=== PATIENT | female | born 1995 | race Caucasian/White ===

== ENCOUNTER 2020-09-18 11:33 | Outpatient (RCR) | payer OTHER, SELFPAY ==
[2020-09-01 15:42] VITALS: BP 128/88; PULSE 80
[2020-09-04 10:00] VITALS: BP 119/83; PULSE 104
[2020-09-08 13:15] VITALS: BP 131/87; PULSE 89
[2020-09-11 10:38] VITALS: BP 125/84; PULSE 118
[2020-09-15 17:13] LABS: Add Urine Microscopic? YES; Appearance Urine Clear (Clear); Bacteria Urine Trace /hpf; Bilirubin Urine 1+ (Negative); Blood Urine Negative (Negative); Color Urine Yellow (Yellow); Glucose Urine UA Negative (Negative); Ketones Urine Negative (Negative); Leukocyte Esterase Ur Negative LEU/UL (Negative); Mucus Urine Heavy /lpf; Nitrate Urine Negative (Negative); Protein Urine 1+ mg/dL (Negative); RBC Urine 0-2 /hpf (0-2); Specific Grav Ur 1.029 (1.001-1.035); Squamous Epithelial Cell Urine Moderate /hpf (Few); WBC Urine 0-3 /hpf
[2020-09-15 18:00] VITALS: BP 140/82; PULSE 98
--- NOTE | ~2020-09-18 | US_ITS ---
EXAMINATION: US OB BPP wo non-stress EXAM DATE: 09/15/2020 17:37 INDICATION: Hypertension in . 3rd trimester. TECHNIQUE: Pelvic obstetrical transabdominal sonogram was performed by a technologist. There are mu ltiple grayscale and Doppler images available for interpretation. Comparison is made to prior examina tion from 09/08/2020. FINDINGS: There is a single fetus identified in vertex presentation with a heart rate of 141 beats pe r minute. The placenta is located in the anterior position. There is no sonographic evidence of retr oplacental hemorrhage identified. BIOPHYSICAL PROFILE (performed by the technologist) breathing (30 sec sustained breathing in 30 minutes): 2 out of 2 movement (3 gross body movements in 30 minutes): 2 out of 2 tone (one episode of zqgtlcd-wjnvuagwr-btsweia limb movement): 2 out of 2 Amniotic fluid pocket (2 cm): 2 out of 2 Total score: 8 out of 8 IMPRESSION: 1. Single fetus with heart rate of 141 bpm. 2. Normal biophysical profile score of 8 out of 8. Reviewed, dictated and finalized at location A.
--- NOTE | ~2020-09-18 | US_ITS ---
EXAMINATION: US OB BPP wo non-stress DATE: 09/01/2020 15:37 INDICATION: assessment during third trimester TECHNIQUE: Real-time pelvic ultrasound was performed. The interpreting radiologist was not present fo r the study. COMPARISON: None. FINDINGS: There is a single living fetus in vertex presentation. The placenta is anterior. heart rate is 131 beats per minute (bpm). Biophysical profile performed by the technologist: breathing (30 sec sustained breathing in 30 minutes): 2 out of 2 movement (3 gross body movements in 30 minutes): 2 out of 2 tone (one episode of tripddi-nafvccubu-sudafao limb movement): 2 out of 2 Amniotic fluid pocket (2 cm): 2 out of 2 Total score: 8 out of 8 IMPRESSION: 1. Single living fetus in vertex presentation. 2. Biophysical profile 8 out of 8. Reviewed, dictated and finalized at location A.
--- NOTE | ~2020-09-18 | US_ITS ---
EXAMINATION: US OB BPP wo non-stress DATE: 09/08/2020 13:12 INDICATION: Hypertension. Third trimester. TECHNIQUE: Real-time pelvic ultrasound was performed. COMPARISON: Ultrasound 09/01/2020 FINDINGS: There is a single living fetus in vertex presentation. The placenta is anterior. heart rate is 139 beats per minute (bpm). Biophysical profile performed by the technologist: breathing (30 sec sustained breathing in 30 minutes): 2 out of 2 movement (3 gross body movements in 30 minutes): 2 out of 2 tone (one episode of prbmyfc-dydrfickb-akvbwoj limb movement): 2 out of 2 Amniotic fluid pocket (2 cm): 2 out of 2 Total score: 8 out of 8 IMPRESSION: 1. Single living fetus in vertex presentation. 2. Biophysical profile 8 out of 8. Reviewed, dictated and finalized at location A.
[2020-09-18 12:02] VITALS: BP 118/77; PULSE 116
== END 2020-09-23 07:45 | disposition home or self-care (01) ==
LOC: ANHOBOP 11:33
PROVIDERS: Visit Provider Obstetrics & Gynecology
DX: O26.893 Other specified pregnancy related conditions, third trimester (principal); R03.0 Elevated blood-pressure reading, without diagnosis of hypertension; Z3A.36 36 weeks gestation of pregnancy; Z3A.37 37 weeks gestation of pregnancy; Z3A.38 38 weeks gestation of pregnancy
CPT/HCPCS: 59025; 76819; 81001

== ENCOUNTER 2020-09-21 15:57 | Inpatient (IN) | payer OTHER, SELFPAY ==
[2020-09-21] VITALS (17 sets, daily range): BP systolic 120–147; BP diastolic 57–100; PULSE 89–115; RESP 18–20; TEMP 36.6–36.8; BMI 38.0
--- NOTE | 2020-09-21 15:57 | LDADM ---
This patient, Laurence Rutherford, was admitted to Labor/Delivery/Recovery 104 on 09/21/20 at 15:57. Plans for labor, pain management and were discussed with patient. Patient/family oriented to hospital policies and general routines including ID bracelet, bed and alarms, visiting hours, pain management, procedures, bathroom and other care routines, personal items, smoking policy, room service/diet and guest tray routines, infant security routines, and visiting hours. Patient/Family are encouraged to report perceived risks to care and to ask questions if they do not understand what they are told or what they should do. See OBIX for further documentation.
--- NOTE | 2020-09-21 16:53 | PC.NURSE ---
Clarified lab results with Dr. Jenkins. Patient negative for Chlamydia 08/16/20, patient positive for Trichomonas 08/16/2020. Order to swap patient for to test for Trichomonas prior to cervidil insertion. No other orders at present time.
[2020-09-21] MEDS: DINOPROSTONE 10 MG VAG INSERT VAGINAL (17:10)
[2020-09-21 17:13] LABS: Basophils Absolute Auto 0.1 K/mm3 (0.0-0.1); Basophils Percent Auto 0.5 % (0.2-1.2); Eosinophils Absolute Auto 0.3 K/mm3 (0-0.3); Eosinophils Percent Auto 2.8 % (0-4.4); Hematocrit 33.5 % (37.0-47.0); Hemoglobin 11.2 g/dL (12.0-15.0); Immature Granulocyte Absolute 0.05 K/mm3 (0.00-0.031); Immature Granulocyte Percent A 0.4 % (0-0.5); Mean Corpuscular HGB Conc 33.4 g/dl (32-36); Mean Corpuscular Hemoglobin 29.2 pg (26-34); Mean Corpuscular Volume 87.2 fl (80-100); Mean Platelet Volume 10.6 fl (7.4-10.4); Monocytes Absolute Auto 0.7 K/mm3 (0.1-0.6); Monocytes Percent Auto 5.9 % (2.6-8.5); Neutrophils Absolute Auto 7.6 K/mm3 (1.3-6.7); Neutrophils Percent Auto 67.4 % (45.5-73.1); Platelet Count Result 337 k/mm3 (150-375); Red Blood Count 3.84 M/mm3 (4.2-5.4); Red Cell Distribution Width 14.1 % (11.5-14.5); White Blood Count 11.3 K/mm3 (4.5-10.0)
[2020-09-21 17:24] LABS: Alanine Aminotransferase 12 U/L (4-35); Albumin Level 3.6 g/dL (3.5-5.1); Alkaline Phosphatase 134 U/L (38-126); Anion Gap 8 mmol/L (8-16); Aspartate Amino Transferase 19 U/L (14-36); Bilirubin,Total 0.4 mg/dL (0.2-1.3); Blood Urea Nitrogen 4 mg/dL (7-17); Calcium 8.7 mg/dL (8.4-10.2); Carbon Dioxide 23 mmol/L (22-30); Chloride 105 mmol/L (98-107); Estimated CRCL calculation 174 ml/min; Estimated Glomerular Filt Rate > 60; Glucose 96 mg/dL (65-105); Potassium 3.8 mmol/L (3.4-5.0); Sodium 136 mmol/L (137-145)
[2020-09-21 17:25] LABS: Uric Acid 5.1 mg/dL (2.5-7.5)
--- NOTE | 2020-09-21 21:54 | WPDANESEPP ---
Anes - Eval Pre Procedure Procedure: Labor epidural Date/Time: 09/21/20 21:54 Surgeon: Norberto Jenkins M.D. Preop Diagnosis: pain during labor Pre Op Diagnosis: Induction of Labor Patient Data Age: 25 Gender: F Height: 1.68 m Weight: 107 kg Last Vital Signs Temp 36.8 C 09/21/20 20:55 Pulse 89 09/21/20 21:32 Resp 20 09/21/20 20:55 BP 128/73 09/21/20 21:32 Allergies Allergy/AdvReac Type Severity Reaction Status Date / Time No Known Allergies Allergy Verified 09/08/20 13:27 Home Medications Medication Instructions Recorded Confirmed Type qvsuswuw-aan-Mz-FA 1 tablet PO DAILY 09/08/20 09/21/20 History [] Laboratory Tests 09/21/20 09/21/20 09/21/20 16:48 16:48 16:48 WBC 11.3 K/mm3 H K/mm3 (4.5-10.0) RBC 3.84 M/mm3 L M/mm3 (4.2-5.4) Hgb 11.2 g/dL L g/dL (12.0-15.0) Hct 33.5 % L % (37.0-47.0) MCV 87.2 fl fl (80-100) MCH 29.2 pg pg (26-34) MCHC 33.4 g/dl g/dl (32-36) RDW 14.1 % % (11.5-14.5) Plt Count 337 k/mm3 k/mm3 (150-375) MPV 10.6 fl H fl (7.4-10.4) Immature Gran % (Auto) 0.4 % % (0-0.5) Neut % (Auto) 67.4 % % (45.5-73.1) Lymph % (Auto) 23.0 % % (18.3-44.2) Franklin % (Auto) 5.9 % % (2.6-8.5) Eos % (Auto) 2.8 % % (0-4.4) Baso % (Auto) 0.5 % % (0.2-1.2) Lymph # (Auto) 2.60 K/mm3 K/mm3 (0.9-3.2) Franklin # (Auto) 0.7 K/mm3 H K/mm3 (0.1-0.6) Eos # (Auto) 0.3 K/mm3 K/mm3 (0-0.3) Baso # (Auto) 0.1 K/mm3 K/mm3 (0.0-0.1) Abs Immat Gran (auto) 0.05 K/mm3 H K/mm3 (0.00-0.031) Absolute Neuts (auto) 7.6 K/mm3 H K/mm3 (1.3-6.7) Absolute Nucleated RBC 0.0 K/mm3 K/mm3 (0.0-0.012) Nucleated RBC % 0.0 % % (0.0-0.2) Sodium Potassium Chloride Carbon Dioxide Anion Gap BUN Creatinine Estim Creat Clear Calc Estimated GFR Glucose Uric Acid 5.1 mg/dL mg/dL (2.5-7.5) Calcium Total Bilirubin AST ALT Alkaline Phosphatase Total Protein Albumin RPR Pending Trichomonas Direct ID Blood Type Antibody Screen 09/21/20 09/21/20 09/21/20 16:48 16:48 17:03 WBC RBC Hgb Hct MCV MCH MCHC RDW Plt Count MPV Immature Gran % (Auto) Neut % (Auto) Lymph % (Auto) Franklin % (Auto) Eos % (Auto) Baso % (Auto) Lymph # (Auto) Franklin # (Auto) Eos # (Auto) Baso # (Auto) Abs Immat Gran (auto) Absolute Neuts (auto) Absolute Nucleated RBC Nucleated RBC % Sodium 136 mmol/L L mmol/L (137-145) Potassium 3.8 mmol/L mmol/L (3.4-5.0) Chloride 105 mmol/L mmol/L (98-107) Carbon Dioxide 23 mmol/L mmol/L (22-30) Anion Gap 8 mmol/L mmol/L (8-16) BUN 4 mg/dL L mg/dL (7-17) Creatinine 0.50 mg/dL L mg/dL (0.7-1.0) Estim Creat Clear Calc 174 ml/min ml/min Estimated GFR > 60 (59 - ) Glucose 96 mg/dL mg/dL (65-105) Uric Acid Calcium 8.7 mg/dL mg/dL (8.4-10.2) Total Bilirubin 0.4 mg/dL mg/dL (0.2-1.3) AST 19 U/L U/L (14-36) ALT 12 U/L U/L (4-35) Alkaline Phosphatase 134 U/L H U/L (38-126) Total Protein 7.0 g/dL g/dL (6.3-8.2) Albumin 3.6 g/dL g/dL (3.5-5.1) RPR Trichomonas Direct
[2020-09-22] VITALS (17 sets, daily range): BP systolic 124–151; BP diastolic 55–101; PULSE 70–92; RESP 16; TEMP 36.1–36.8; O2SAT 99
[2020-09-22] MEDS: LACTATED RINGERS 1,000 ML 125 ML IV CONT (06:23)
[2020-09-22] MEDS: OXYTOCIN 30 UNITS/NS 500 ML 30 UNITS/500 ML BAG IV CONT (06:23)
[2020-09-22 06:57] LABS: Rapid Plasma Reagin Non-Reactive (NonReactive)
--- NOTE | 2020-09-22 10:40 | P.PCNOB_ITS ---
OB - Delivery Note Procedure Route of delivery: Laceration Description: None Estimated blood loss (mL): 300 Anesthesia type: None Disposition: floor Narrative: Patient prepped and draped in the usual manner for this procedure. Maternal expulsive efforts readily delivered vertex in the rest of the baby followed without difficulty. Cord was clamped and cut and placenta delivered spontaneously. Cervix vagina vulva were inspected with no lacerations or tears. Uterus was well contracted with no significant bleeding. Immediate postop condition of mother and baby were both excellent. [place] Baby Weeks of gestation at delivery: 39 gender: Male Weight (pounds): 7 Weight (ounces): 7 score one minute: 8 score five minutes: 9
--- NOTE | 2020-09-22 10:41 | WPDHPUPDATE1 ---
History and Physical Update Update Date/Time: 09/22/20 10:41 History and Physical has been reviewed, including an updated exam of the patient. There are NO changes in the patient's condition. Risks, benefits, and alternatives have been discussed and questions answered. Patient agrees to proceed with procedure.
--- NOTE | 2020-09-22 10:41 | WPDOBADMIT ---
Obstetrics - Admit Note Admission Note: record reviewed. No pertinent additions to the history and/or any subsequent changes in the physical findings that are not consistent with the expected course of the were found. Additions to the history and/or subsequent changes in the physical findings follow. None.
[2020-09-22] MEDS: OXYTOCIN 30 UNITS/NS 500 ML 30 UNITS/500 ML BAG 125 UNITS IV CONT (11:13)
--- NOTE | 2020-09-22 13:05 | PC.NURSE ---
Patient transferred to post room #286 ambulatory. Support person present. Oriented to unit, room, information board, rooming in, admission packet and security measures. Patient verbalizes understanding.
--- NOTE | 2020-09-22 15:10 | PC.NURSE ---
Consult with pt., mother reports she attempted with first two children, quickly switching to bottle feeding due to latch issues. Reviewed infant feeding cues, frequencies, duration of feedings, feeding elimination flow sheet, and signs of adequate intake. Demonstrated stimulation techniques to wake for feeding. Assisted with infant to breast. Reviewed positioning/alignment in cross cradle, holding breast in U hold and guided asymmetrical latch on. Discussed rational for each. Infant was able to latch correctly. nursed eagerly, with steady draws and frequent swallowing noted. Reviewed signs of a correct latch, effective nursing and suck swallow ratio. was able to maintain latch without discomfort to mother. Nipple care reviewed. Suggested to stimulate while feeding to keep awake and nursing effectively for increase intake and to assist with maintaining deep latch. Instructed mother to call out for RN assistance if she is unable to latch for feeding or she has discomfort with nursing. Instructed feeding should be initiated three hours from start of last feeding or if feeding cues are noted before. Mother voiced understanding of information shared.
[2020-09-23 05:44] LABS: Hematocrit 29.8 % (37.0-47.0); Hemoglobin 9.7 g/dL (12.0-15.0)
[2020-09-23 07:45] VITALS: BP 109/69; PULSE 68; RESP 14; TEMP 36.8
[2020-09-23] MEDS: DOCUSATE SODIUM 100 MG CAPSULE PO (07:51)
[2020-09-23] MEDS: MULTIVIT/MIN/PREN/FOL AC/IRON TABLET 1 TAB PO (07:51)
[2020-09-23] MEDS: POLYSACCHARIDE IRON COMPLEX 150 MG CAPSULE PO (07:51)
[2020-09-23] MEDS: IBUPROFEN 600 MG TABLET PO (07:51)
--- NOTE | 2020-09-23 09:05 | PM.OBDSVD ---
DS: Admitting Diagnosis Admitting Diagnosis Admitting Diagnosis: Induction of Labor OB - DS: Summary OB Procedures : None OB Procedures Intrapartum: Spontaneous Vag Delivery OB Procedures: : None Time Spent with Patient Time attestation: Total time spent providing and/or coordinating discharge services: DS: Data Data Completed and Pending Pending studies at discharge: Pending at discharge 09/22/20 10:33 Surgical [PTH] Routine Labs on day of discharge: Labs from last 24 hours 09/23/20 03:44 Hgb 9.7 L Hct 29.8 L Discharge Plan Discharge Discharging Clinician: Norberto Jenkins Patient Disposition: Home, Self-Care Activity: as tolerated Diet: as tolerated Patient Instructions: Antibiotic Form Stand Alone Forms: General Discharge Information Follow-up/Referrals: Norberto Jenkins MD [Physician] - 3 Weeks Discharge Medications: Discontinued 1 mg Tablet 1 tablet PO DAILY RF: 0 Date of admission: 09/21/20 15:57 Primary Care Provider: PHYSICIAN NOT ON STAFF,NONSTAFF Admitting Provider: Norberto Jenkins Attending physician on admission: Norberto Jenkins Condition: Stable
[2020-09-24 10:25] VITALS: BP 135/90; PULSE 87; RESP 20; TEMP 36.8; O2SAT 99
== END 2020-09-23 12:30 | disposition home or self-care (01) | DRG 560 ==
LOC: ANHLDR 16:20 → ANHOB2 09-22 13:23
PROVIDERS: Admitting Provider Obstetrics & Gynecology; Visit Provider Obstetrics & Gynecology
DX: O13.4 Gestational [pregnancy-induced] hypertension without significant proteinuria, complicating childbirth (principal); Z37.0 Single live birth; Z3A.39 39 weeks gestation of pregnancy
CPT/HCPCS: 36415; 80053; 84550; 85014; 85018; 85025; 86592; 86850; 86900; 86901; 87808; 88307; A9270; J2590; J7120

== ENCOUNTER 2024-12-04 12:46 | Outpatient (CLI) | payer OTHER, SELFPAY ==
--- NOTE | ~2024-12-04 | US_ITS ---
EXAMINATION:US venous doppler LE LT INDICATION:Lower extremity edema TECHNIQUE: Multiple grayscale, color flow and Doppler images of the left lower extremity deep venous systems were obtained and reviewed. COMPARISON:No prior studies for comparison. FINDINGS: The common femoral, superficial femoral and popliteal veins demonstrate normal respiratory variation, augmentation and compressibility. Color flow is also seen within the posterior tibial, pe roneal, greater saphenous and profunda veins. IMPRESSION: 1: No lower extremity deep venous thrombosis. Reviewed, dictated and finalized at location B. 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
== END 2024-12-04 12:47 | disposition home or self-care (01) ==
PROVIDERS: PCP Internal Medicine; Visit Provider Internal Medicine
DX: R60.0 Localized edema (principal)
CPT/HCPCS: 93971

== ENCOUNTER 2024-12-24 09:38 | Emergency (ER) | payer OTHER, SELFPAY ==
--- NOTE | ~2024-12-24 | CT_ITS ---
EXAMINATION: CT abdomen pelvis w con DATE: 12/24/2024 12:41 INDICATION: Left lower quadrant abdominal pain. TECHNIQUE: Computed tomography (CT) of the abdomen and pelvis was performed with 100 mL Omnipaque-350 intravenous contrast. Automated exposure control and iterative reconstruction technique were employe d. The dose-length product was 1139.86 mGy-cm. COMPARISON: None FINDINGS: Lung bases are clear. Heart size is normal. No pericardial or pleural effusion. Diffuse hepatic steat osis. Gallbladder, spleen, pancreas, bilateral adrenal glands and kidneys are normal. There is mild s cattered diverticulosis most prominent along the descending and sigmoid colon. There is some trace st randing surrounding a diverticulum at the mid descending colon consistent with diverticulitis. Small bowel and appendix are normal. The latter, anteverted uterus and bilateral adnexa are unremarkable. T race amount of either physiologic or reactive free fluid in the cul-de-sac. No abscess or free intrap eritoneal gas. No pathologically enlarged abdominal or pelvic lymphadenopathy. Moderate to severe spo ndylosis the lower thoracic spine with chronic appearing mild anterior wedging at T10-L1. IMPRESSION: 1. Radiographically uncomplicated descending colon diverticulitis. Reviewed, dictated and finalized at location B. PILER
[2024-12-24 09:46] VITALS: BP 141/97; PULSE 89; RESP 20; TEMP 36.4; O2SAT 100
--- OUTSIDE RECORDS SUMMARY | 2024-12-24 10:16 | XMS_ITS | CONTINUITY OF CARE DOCUMENT ---
Author Name rita salinas Address Unknown Organization [facility] Address [address] [place] [address] [address] [place] [address] Phone [phone] Care Team Providers Care Field Auto Appraiser Name Role Phone Santiago Martínez MD Unavailable [phone] SAVANNAH MALHOTRA MD Unavailable [phone] SAVANNAH MALHOTRA MD Unavailable [phone] PROBLEMS Condition Status Date Provider Notes Venous insufficiency active Santiago Robles REMOTE DVT Obesity active Santiago Martínez MD ENCOUNTERS Date Type Provider Location Encounter Diag nosis - In-person encounter Office Visit Rony Mishra MD [place] [facility] - In-person encounter Office Visit Santiago Martínez MD [facility] [place] [facility] [facility] Venous insufficiencyObesity VITAL SIGNS Date Observation Value Provider Body Mass Index (Ratio) 39.38 kg/m2 Marisol Mishra MD blood pressure, cuff size large Cr lucia Islas blood pressure, diastolic 70 mm[Hg] Cr lucia Islas blood pressure, systolic 125 mm[Hg] Cry stal Roshan oxygen saturation, oximetry 98 % Lynn Islas respiratory rate E&M 17 /min Lynn Islas pulse rate 80 /min Lynn benavides weight E&M 244 [lb_av] Lynn benavides height E&M 66 [in_i] Lynn benavides Body Mass Index (Ratio) 39.22 kg/m2 Nikki Martínez MD blood pressure, cuff size regular Cy andra Monzon blood pressure, diastolic 70 mm[Hg] Chucky Monzon blood pressure, systolic 124 mm[Hg] Bozena Monzon oxygen saturation, oximetry 98 % Mami Monzon respiratory rate E&M 16 /min Mami Monzon pulse rate 92 /min Mami serrano height E&M 66 [in_i] Mami serrano weight E&M 243 [lb_av] Mami serrano ALLERGIES No Known Drug Allergies HISTORY OF MEDICATION USE Medication Status Instructions Dates Provider Indications Com ments BUPROPION HCL 100 MG ORAL TABLET active 1 tab by mouth daily, if not effective after 1 week may increase to 1 tab twice daily Santiago Martínez MD NALTREXONE HCL 50 MG ORAL TABLET active 1/2 tab by mouth daily, if not effective after 1 week may increase to 1/2 tab twice daily Santiago Martínez MD SOCIAL HISTORY Date Observation Value Provider social history E&M S moking History: Kee mendoza has never smoked. Rony Mishra MD social history reviewed E&M revi ewed - no changes required Rony Mishra MD smoking status Never smoker Lynn Angel ams social history reviewed E&M revi ewed - no changes required Santiago Martínez MD smoking status Never smoker Mami Rosi ochoa FAMILY HISTORY Family Member Condition Father Family History of Hy pertension: INSURANCE PROVIDERS Payer name Policy type / Coverage type [facility] ID HEALTHCARE AND FAMILY SERVICES Medicaid 1 [id number] [facility] [place] [id number] ADVANCE DIRECTIVES Name Date DISCUSSED - NO DECISION MADE TREATMENT PLAN Date Name Performer Cardiology:Per Dr. Martínez. Rony Mishra MD Cardiology:Pt contin ues to have LE swelling and pain despite wearing compression stockings. Will set her up for EVLT. She has very large GSV's and will most likely require laser. She understands fully that she will need to continue wearing compression even after this Rony Mishra MD Cardiology follow up Santiago alvarez MD Cardiology follow up :NOT HELPPE D BY SUPPROT CHETAN Martínez MD Date Name EVLT HISTORY OF PROCEDURES Procedure Date Procedure Name Provider Procedure Notes S tatus EKG Santiago Martínez MD complete d
--- OUTSIDE RECORDS SUMMARY | 2024-12-24 10:16 | XMS_ITS | Referral Summary ---
Author Organization [facility] Address [address] [place] [address] Care Team Providers Care Citrus Fruit Packer Name Role Phone Brian Velasquez MD Primary Care Provider [phone] Source Comments [facility],non-owned Affiliates and Associated Physician Practices is amultiple site organization consisting of ambulatory clinics and hospital sitesin [place], [place], [place] and [place]. This disclosure is being madepursuant to the Care Everywhere program and may not contain all information available regarding this patient. Last updated 18.[facility] Allergies No known active allergies Medications * Be aware that medications may not be up to date on this document. Alwaysverify current medications with the patient. Medication Sig Dispensed Refills Start Date End Date Status OtherIndications: control Reasons: control Active Active Problems Problem Noted Date Diagnosed Date Allergic contact dermatitis 11/06/2013 Social History Tobacco Use Types Packs/Day Years Used Date Smoking Tobacco: Never Smokeless Tobacco: Never Alcohol Use Standard Drinks/Week Comments No 0 (1 standard drink = 0.6 oz pur e alcohol) Sex and Gender Information Value Date Recorded Sex Assigned at Not on file Gender Identity Not on file Sexual Orientation Not on file Last Filed Vital Signs Vital Sign Reading Time Taken Comments Blood Pressure 130/76 03/25/2018 4:44 PM CDT Pulse 103 03/25/2018 4:44 PM CDT Temperature 36.6 ??C (97.8 ??F) 03/25/2018 4:44 PM CD T Respiratory Rate 16 03/25/2018 4:44 PM CDT Oxygen Saturation 98% 03/25/2018 4:44 PM CDT Inhaled Oxygen Concentration - - Weight 104.3 kg (230 lb) 03/25/2018 4:44 PM CDT Height 167.6 cm (5' 6 ) 03/25/2018 4:44 PM CDT Body Mass Index 37.12 03/25/2018 4:44 PM CDT Plan of Treatment Not on file Insurance Payer Benefit Plan / Group Subscriber ID Effective Dates Phone Address Type MEDICARE MANAGED CARE PLAN GENERIC MEDICARE ADV [place]TE MEDIC[place] OUT OF [place] [id number] Effective for all dates [address] [place] [address] Medicare-Man aged Care [facility] MEDICAID [id number] 2021-Pre sent [address] [place] [address] Medicaid Managed Care [facility] MEDICAID [id number] 2020-Pre sent ATTN CLAIMS DEPARTMENT [address] [place] [address] Medicaid Managed Care Care Teams Citrus Fruit Packer Relationship Specialty Start Date End Date Brian Velasquez MD [address] [place] [address] [address] [place] [address] PCP - General 10/02/13
--- OUTSIDE RECORDS SUMMARY | 2024-12-24 10:16 | XMS_ITS | Clinical Summary ---
Author Organization [facility] Address [address] [place] [address] Care Team Providers Care Last Puller Name Role Phone Brian Velasquez MD Primary Care Provider [phone] Source Comments [facility],non-owned Affiliates and Associated Physician Practices is amultiple site organization consisting of ambulatory clinics and hospital sitesin [place], [place], [place] and [place]. This disclosure is being madepursuant to the Care Everywhere program and may not contain all information available regarding this patient. Last updated 18.[facility] Allergies No known active allergies Medications * Be aware that medications may not be up to date on this document. Alwaysverify current medications with the patient. Medication Sig Dispensed Refills Start Date End Date Status OtherIndications: control Reasons: control Active Active Problems Problem Noted Date Diagnosed Date Allergic contact dermatitis 11/06/2013 Family History Medical History Relation Name Comments Allergy (Severe) Neg Hx Cancer - Skin, Melanoma Neg Hx Cancer - Skin, Non Melanoma Neg Hx Eczema Neg Hx Psoriasis Neg Hx Rashes/Skin Problems Neg Hx Social History Tobacco Use Types Packs/Day Years [...] 03/25/2018 4:44 PM CDT Plan of Treatment Health Maintenance Due Date Last Done Comments PAP SMEAR 1993 HIV SCREENING 2008 HEPATITIS C SCREENING 07/07/2011 DTAP/TDAP/TD VACCINES (1 - Tdap) 2012 HEPATITIS B VACCINE (1 of 3 - 19+ 3-dose series) 2012 COVID-19 VACCINE (3 - 2023-2 5 season) 2024 02/14/2021, 01/06/2021 INFLUENZA VACCINE (#1) 2024 DEPRESSION SCREENING 11/26/2024 ZOSTER VACCINE (1 of 2) 2043 HIB VACCINE Aged Out No longer eligi ble based on patient's age to complete this topic HPV VACCINE Aged Out No longer eligi ble based on patient's age to complete this topic MENINGOCOCCAL (Group B) VACCINE Aged Out No longer eligible b ased on patient's age to complete this topic MENINGOCOCCAL VACCINE Aged Out No sue glenn eligible based on patient's age to complete this topic PNEUMOCOCCAL VACCINE Aged Out No long er eligible based on patient's age to complete this topic Insurance Payer Benefit Plan / Group Subscriber ID Effective Dates Phone Address Type MEDICARE MANAGED CARE PLAN GENERIC MEDICARE ADV [place] COMPLETE MEDICARE AD[place] OUT OF [place] [id number] Effective for all dates [address] [facility] [place] [address] Medicare-Man aged Care [facility] MEDICAID [id number] 2021-Pre sent [address] [place] [address] Medicaid Managed [facility] MEDICAID [id number] 2020-Pre sent ATTN CLAIMS DEPARTMENT [address] [place] [address] Medicaid Managed Care Care Teams Last Puller Relationship Specialty Start Date End Date Brian Velasquez MD [address] [place] [address] [address] [place] [address] PCP - General 10/02/13
--- OUTSIDE RECORDS SUMMARY | 2024-12-24 10:16 | XMS_ITS | Continuity of Care Document ---
Author Organization [facility] Address [address] [place] [address] [address] [place] [address] Phone Care Team Providers Care Warp Tying Machine Knotter Name Role Phone Gustafson OD, Yon Unavailable Unavailable Advance Directives Directive Yes / No Effective Date File Name No Information Encounters Encounter Description Practice Location Reason(s) For Visit Diagnoses Date Provider Providers Copied on Encounter [facility], [address] [place] [address] [address], [place], [place], [id number], [place] tel:[phone] [facility] No Information Aug-2 2-200 1 Gustafson OD Yon. [address] , [address], [place], [address], [place]. tel:[phone] Family History Family Member Type Diagnosis Age At Onset No Information Payers Payer name Insurance type Covered green party ID Authoriza tion(s) No Information Social History Type Description Quantity Date Captured Comments Sex Female Smoking Status No Information Chief Complaint And Reason For Visit No Information Reason For Referral Reason For Referral No Information History Of Present Illness Encounter Date Complaint History Of Prese nt Illness No Information Functional Status Date Functional Assessmen t No Information Instructions Date Instruction Additional Infor mation No Information Assessments Type Assessment Date No Information Patient Care Teams Name Effective Dates (start - stop) Status Members No Information
--- OUTSIDE RECORDS SUMMARY | 2024-12-24 10:16 | XMS_ITS | Patient Health Summary ---
Author Organization [facility] Address [address] [place] [address] Care Team Providers Care Agricultural Technical Officer Name Role Phone Brian Velasquez MD Primary Care Provider [phone] [facility],non-owned Affiliates and Associated Physician Practices is amultiple site organization consisting of ambulatory clinics and hospital sitesin [place], [place], [place] and [place]. This disclosure is being madepursuant to the Care Everywhere program and may not contain all information available regarding this patient. Last updated 18.[facility] Allergies No known active allergies Medications * Be aware that medications may not be up to date on this document. Alwaysverify current medications with the patient. * Other Reasons: control Active Problems Problem Noted Date Diagnosed Date [...] Mass Index 37.12 03/25/2018 4:44 PM CDT Procedures * SARS-COV-2 (COVID-19)+INFLUENZA A+B PCR(Performed 12/17/2021) Performed for Encounter for screening for COVID-19 * SARS-COV-2 (COVID-19) IN HOUSE(Performed 07/25/2021) Performed for Encounter for screening for COVID-19 * STREP A SCREEN - POINT OF CARE (AMB) STL(Performed 03/25/2018) Performed for Acute ethmoidal sinusitis, recurrence not specified * DERMATOPATHOLOGY(Performed 11/04/2013) * DERMATOPATHOLOGY(Performed 10/15/2013) * CULTURE AEROBIC(Performed 10/15/2013) Results * (ABNORMAL) EMPLOYEE HEALTH COVID + INFLUENZA A+B PCR LAB (12/17/2021 9:05 AM CYTOLOGY TEACHER) COVID-19 PCR Detected(AA) Not detected 12/18/2021 7:14 AM CYTOLOGY TEACHER [facility]CRO[facility] Influenza A PCR Not detected Not detected 12/18/2021 7:14 AM CYTOLOGY TEACHER [facility] MICROBIOLOG[facility] Influenza B PCR Not detected Not detected 12/18/2021 7:[address] [facility]CRO[facility] Microbiology SPECIMEN FROM NASOPHARYNGEAL STRUCTURE / Unknown Collection / Unknown 12/17/2021 9:05 AM CYTOLOGY TEACHER 12/17/2021 9:05 AM CYTOLOGY TEACHER Narrative [facility] MICROBIOLOGY - 12/18/2021 7:14 AM CYTOLOGY TEACHER This nucleic acid amplification assay has been authorized by the Food and Drug administration (FDA) under an Emergency??Use Authorization (EUA).?? This test is only authorized for the duration of time the declaration that circumstances exist justifying the authorization of emergency use of in vitro diagnostic tests for detection of SARS-CoV-2 virus and/or diagnosis of COVID-19 infection under section 564(b)(1) of the Act, 21 U.S.C 360bbb-3 (b)(1), unless the authorization is terminated or revoked sooner. Fact Sheets for this EUA assay are available upon request. Sunni M Blue GIBSON-PARALEGAL LAB - MICROBI OLOGY ORDERABLES [facility] MICROBIOLOGY [address] [place] [address], [facility] [phone] * EMPLOYEE HEALTH COVID LAB (STL) (07/25/2021 11:40 AM CDT) COVID-19 PCR Not detected Not detected 07/26/2021 6:19 AM CDT [facility] MICROBIOLOG[facility] Microbiology SPECIMEN FROM NASOPHARYNGEAL STRUCTURE / Unknown Collection / Unknown 07/25/2021 11:40 AM CDT 07/25/2021 11:40 AM CDT Narrative [facility] MICROBIOLOG[facility] - 07/26/2021 6:19 AM CDT This nucleic acid amplification assay performance was validated by [facility]. This test has been authorized by the Food and Drug administration (FDA)under an Emergency??Use Authorization (EUA). This test has been validated in accordance with the FDA's guidance document Policy for Diagnostic Testing in Laboratories Certified to perform High Complexity Testing under CLIA prior to Emergency Use Authorization for Coronavirus Disease-2019 during the Public Health Emergency issued on January 24, 2020. FDA independent review of this validation is pending. This test is only authorized for the duration of time the declaration that circumstances exist justifying the authorization of emergency use of in vitro diagnostic tests for detection of SARS-CoV-2 virus and/or diagnosis of COVID-19 infection under section 564(b)(1) of the Act, 21 U.S.C 360bbb-3 (b)(1), unless the authorization is terminated or revoked sooner. Fact Sheets for this EUA assay are available upon request. Sunni M Blue GIBSON-PARALEGAL LAB - MICROBI OLOGY ORDERABLES [facility] MICROBIOLOGY [address] [place], [place] [address], [facility] [phone] * STREP A SCREEN - POINT OF CARE (AMB) STL (03/25/2018) Strep A Rapid POCT Negative Negative Strep A Internal Control Present Lot # [id number] Expiration Date 08/16/19 Throat ENTIRE THROAT (SURFACE REGION OF NECK) / Unknown 03/25/2018 Lala Sargent CARPENTER MATE-PARALEGAL LAB - POINT OF GA RE ORDERABLES * PATHOLOGY TISSUE FOR DERMATOLOGY (11/04/2013 12:00 AM CYTOLOGY TEACHER) Only the most recent of2 resultswithin the time period is included. Result CASE: [id number] PATIENT: RAFAL WIGGINS PATHOLOGIC DIAGNOSIS: Right upper arm: SPONGIOTIC DERMATITIS WITH RARE EOSINOPHILS (see microscopic description and comment) CLINICAL DATA: Materials from: [facility]ology [address] [place] [address] Received from Cutaneous Pathology, at the request of Dr. Vicky Zepeda, a consult will be performed on 7 slide(s) labeled [id number]. -Subacute spongiotic dermatitis. ?? Comment: Rare scattered eosinophils in the infiltrate suggest the possibility of a delayed hypersensitivity reaction. The histological features could be consistent with pruritic urticarial papules and plaques of . All slides returned. Any additional sections, special stains, or immunohistochemical stains performed by our laboratory will be kept here on file. MICROSCOPIC DESCRIPTION: There is spongiosis. In the dermis there is a mainly superficial perivascular lymphohistiocytic inflammatory infiltrate with rare eosinophils. ??The sinus red stain highlights the eosinophils. ??A PAS stain does not highlight any fungal elements. COMMENT: ??The histological differential diagnosis includes a contact dermatitis, an eczematous drug eruption, pruritic urticarial papules and plaques of and an eczematous dermatitis. Electronically signed out by Julia Fitzpatrick M.D. 11/04/2013 2:48:36PM [facility] Comment: Performed at: Dermatopathology Laboratory [facility] - Department of Dermatology [address] [place] [address], [address] [place] [address] Phone number: [phone] Toll Free: [phone] FAX: [phone] 11/04/2013 11/04/2013 Vicky Zepeda MD LAB - PATHOLOGY/CYTO LOGY ORDERABLES Performing Organization Address [facility] de Phone Number [facility] [facility]. 5th [place] [address], [facility] [phone] * CULTURE AEROBIC (10/15/2013) Culture SEE NOTE [facility]) Comment: ??CULTURE, AEROBIC BACTERIA ?MICRO NUMBER: ?[id number] ??TEST STATUS: ? FINAL ??SPECIMEN SOURCE: ?? SKIN ??SPECIMEN QUALITY: ??ADEQUATE ??COMMENT: ? Growth of skin steve (note: Growth does not ? include S. aureus, beta-hemolytic Streptococci ? or P. aeruginosa). REPORT COMMENT: SPECIMEN TYPE->SKIN Test Performed at: [facility] ??[phone] EMANI GOODWIN DO, MPH Skin (tissue) specimen (specimen) (Foot, Left) 10/15/2013 10/15/2013 10:44 PM CYTOLOGY TEACHER Narrative [facility] ([facility]) - 10/18/2013 9:00 AM CYTOLOGY TEACHER Specimen Type->Skin Vicky Zepeda MD LAB - MICROBIOLOGY O RDERABLES Performing Organization Address [facility] Co de Phone Number [facility] ([facility]) Care Teams Agricultural Technical Officer Relationship Specialty Start Date End Date Brian Velasquez MD [address] [place] [address] [address] [place] [address] PCP - General 10/02/13
[2024-12-24 11:25] VITALS: BP 149/90; PULSE 73; RESP 16; O2SAT 100
[2024-12-24 11:49] LABS: BEDSIDEPREGUCG Negative (Negative)
[2024-12-24 11:56] LABS: Basophils Absolute Auto 0.1 K/mm3 (0.0-0.1); Basophils Percent Auto 0.5 % (0.2-1.2); Eosinophils Absolute Auto 0.3 K/mm3 (0-0.3); Eosinophils Percent Auto 2.5 % (0-4.4); Hematocrit 38.7 % (37.0-47.0); Hemoglobin 12.5 g/dL (12.0-15.0); Immature Granulocyte Absolute 0.03 K/mm3 (0.00-0.031); Immature Granulocyte Percent A 0.3 % (0-0.5); Immature Platelet Fraction Pct 7.4 % (0.9-11.2); Lymphocytes Absolute Auto 2.21 K/mm3 (0.9-3.2); Mean Corpuscular HGB Conc 32.3 g/dl (32-36); Mean Corpuscular Hemoglobin 30.1 pg (26-34); Mean Corpuscular Volume 93.3 fl (80-100); Mean Platelet Volume 11.5 fl (7.4-10.4); Monocytes Absolute Auto 0.6 K/mm3 (0.1-0.6); Monocytes Percent Auto 6.1 % (2.6-8.5); Neutrophils Absolute Auto 7.3 K/mm3 (1.3-6.7); Neutrophils Percent Auto 69.6 % (45.5-73.1); Platelet Count Result 234 k/mm3 (150-375); Red Blood Count 4.15 M/mm3 (4.2-5.4); Red Cell Distribution Width 13.4 % (11.5-14.5); White Blood Count 10.5 K/mm3 (4.5-10.0)
[2024-12-24 12:04] LABS: Add Urine Microscopic? YES; Appearance Urine Turbid (Clear); Bacteria Urine 3+ /hpf; Bilirubin Urine 2+ (Negative); Blood Urine Negative (Negative); Color Urine Dark Yellow (Yellow); Glucose Urine UA Negative (Negative); Ketones Urine 1+ mg/dL (Negative); Leukocyte Esterase Ur 2+ LEU/UL (Negative); Mucus Urine Present /lpf; Need Manual Microscopic Reviewed; Nitrate Urine Negative (Negative); Non Pathogenic Casts >20; Protein Urine 1+ mg/dL (Negative); Specific Grav Ur 1.035 (1.001-1.035); Squamous Epithelial Cell Urine Moderate /hpf (Few); WBC Urine 21-50 /hpf (0-3); pH Urine 5.5 (5.0-9.0)
[2024-12-24 12:15] LABS: Alanine Aminotransferase 25 U/L (6-35); Alkaline Phosphatase 74 U/L (38-126); Anion Gap 2 mmol/L (4-12); Aspartate Amino Transferase 24 U/L (14-36); Bilirubin,Total 0.7 mg/dL (0.2-1.3); Blood Urea Nitrogen 5 mg/dL (7-17); Calcium 9.1 mg/dL (8.4-10.2); Carbon Dioxide 21 mmol/L (22-30); Chloride 105 mmol/L (98-107); Estimated CRCL calculation 156 ml/min; Estimated Glomerular Filt Rate > 60; Glucose 82 mg/dL (65-110); Lipase 51 U/L (23-300); Potassium 4.4 mmol/L (3.4-5.0); Sodium 128 mmol/L (137-145)
--- NOTE | 2024-12-24 12:41 | ED_ITS ---
HPI - General Adult General Chief complaint: Abdominal Pain Stated complaint: abd pain Time Seen by Provider: 12/24/24 12:03 History of Present Illness HPI narrative: This is a 29 presenting ED with chief. Pain is located in the left lower quadrant. Started yesterday described as sharp, nonradiating moderate intensity. Is constant. She has never had pain like this in the exacerbating alleviating factors. She has had diarrhea that has had some blood and mucus in it. She denies fevers chills chest pain difficulty breathing or urinary symptoms. Patient has chronic diarrhea Related Data Allergies Allergy/AdvReac Type Severity Reaction Status Date / Time No Known Allergies Allergy Verified 12/24/24 11:26 [facility] Past Medical History Medical History Irregular periods Vaginal delivery 06/17/13 Denice htn/eczema psoriasis 12/04/14 Aaleyah htn 09/22/20 Sylas no complications Trichomonas vaginalis (TV) infection Chlamydia Encounter for IUD insertion 12/01/20 Mirena insertion HPV in female Abnormal Pap smear of cervix 08/05/2014 Ascus +HPV Encounter for IUD removal 12/13/21 Mirena removal--IUD out of place IUD migration Vascular disease (~2012) lower extremity/phlebitis w/ Hypertension affecting Surgical History Surgical History History of gynecological procedure (~12/01/20) mirena iud insertion Family History Family History Grandparent Diabetes mellitus paternal grandfather Hypertension paternal grandfather Other No pertinent family history Social History Social History Smoking status: Never smoker Second hand tobacco smoke exposure: No Alcohol intake: never Substance use: never Substance use type: does not use Do You Feel Safe in your Home?: Yes Lack of Transportation: No Lack of Food: Never True Current Housing: I Have Housing Concerned About Future Housing: No Difficulty Paying Gas/Electric Bills: No Difficulty Paying for Meds: No Currently Unemployed: No Education: High School Diploma/GED Difficulty w/ Childcare or Family Care: No Living arrangements: other Additional living arrangements comments: single Occupation/Education: occupation 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 Head: atraumatic. EYES: EOMI, NOSE: Atraumatic NECK: Trachea midline RESPIRATORY: No increased rate of breathing CARDIOVASCULAR: RRR, ABDOMINAL: Non-distended tenderness in left lower quadrant without guarding or rebound MUSCULOSKELETAl: No obvious deformities NEURO: Alert. Moving 4/4 extremities SKIN:: Warm, dry. Normal color PSYCHIATRIC: Normal affect Course Vital Signs Vital signs: Vital Signs Temperature 97.5 F L 12/24/24 09:46 Pulse Rate 89 12/24/24 09:46 Respiratory Rate 20 12/24/24 09:46 Blood Pressure 141/97 H 12/24/24 09:46 Pulse Oximetry 100 12/24/24 09:46 Temperature 97.5 F L 12/24/24 09:46 Pulse Rate 73 12/24/24 11:25 Respiratory Rate 16 12/24/24 11:25 Blood Pressure 149/90 H 12/24/24 11:25 Pulse Oximetry 100 12/24/24 11:25 Medical Decision Making MDM Narrative Medical decision making narrative: -Course: 29-year-old female presenting left lower quadrant abdominal pain. CT showed uncomplicated diverticulitis. Patient reports fevers at home so she will be started on antibiotics. Primary care follow-up and return precautions. -DDX includes but is not limited to: Colitis, diverticulitis, gastroenteritis, ovarian pathology Vital Signs Vital Signs: Vital Signs Temperature 97.5 F L 12/24/24 09:46 Pulse Rate 89 12/24/24 09:46 Respiratory Rate 20 12/24/24 09:46 Blood Pressure 141/97 H 12/24/24 09:46 Pulse Oximetry 100 12/24/24 09:46 Temperature 97.5 F L 12/24/24 09:46 Pulse Rate 73 12/24/24 11:25 Respiratory Rate 16 12/24/24 11:25 Blood Pressure 149/90 H 12/24/24 11:25 Pulse Oximetry 100 12/24/24 11:25 Lab Data 12/24/24 11:45 12/24/24 11:45 Labs: Lab Results 12/24/24 12/24/24 Range/Units 11:45 11:47 WBC 10.5 H (4.5-10.0) K/mm3 RBC 4.15 L (4.2-5.4) M/mm3 Hgb 12.5 (12.0-15.0) g/dL Hct 38.7 (37.0-47.0) % MCV 93.3 (80-100) fl MCH 30.1 (26-34) pg MCHC 32.3 (32-36) g/dl RDW 13.4 (11.5-14.5) % Plt Count 234 (150-375) k/mm3 MPV 11.5 H (7.4-10.4) fl Immature Gran % (Auto) 0.3 (0-0.5) % Neut % (Auto) 69.6 (45.5-73.1) % Lymph % (Auto) 21.0 (18.3-44.2) % [place] % (Auto) 6.1 (2.6-8.5) % Eos % (Auto) 2.5 (0-4.4) % Baso % (Auto) 0.5 (0.2-1.2) % Lymph # (Auto) 2.21 (0.9-3.2) K/mm3 [place] # (Auto) 0.6 (0.1-0.6) K/mm3 Eos # (Auto) 0.3 (0-0.3) K/mm3 Baso # (Auto) 0.1 (0.0-0.1) K/mm3 Abs Immat Gran (auto) 0.03 (0.00-0.031) K/mm3 Absolute Neuts (auto) 7.3 H (1.3-6.7) K/mm3 Absolute Nucleated RBC 0.000 (0.0-0.012) K/mm3 Nucleated RBC % 0.0 (0.0-0.2) % % Immature Plt Fraction 7.4 (0.9-11.2) % Sodium 128 L (137-145) mmol/L Potassium 4.4 (3.4-5.0) mmol/L Chloride 105 (98-107) mmol/L Carbon Dioxide 21 L (22-30) mmol/L Anion Gap 2 L (4-12) mmol/L BUN 5 L (7-17) mg/dL Creatinine 0.58 L (0.7-1.0) mg/dL Estim Creat Clear Calc 156 ml/min Estimated GFR > 60 (59 - ) Glucose 82 (65-110) mg/dL Calcium 9.1 (8.4-10.2) mg/dL Total Bilirubin 0.7 (0.2-1.3) mg/dL AST 24 (14-36) U/L ALT 25 (6-35) U/L Alkaline Phosphatase 74 (38-126) U/L Total Protein 8.0 (6.3-8.2) g/dL Albumin 4.0 (3.5-5.1) g/dL Lipase 51 (23-300) U/L Urine Color Dark yellow (Yellow) Urine Appearance Turbid H (Clear) Urine pH 5.5 (5.0-9.0) Ur Specific [place] 1.035 (1.001-1.035) Urine Protein 1+ H (Negative) mg/dL Urine Glucose (UA) Negative (Negative) mg/dL Urine Ketones 1+ H (Negative) mg/dL Ur Blood (Man) Negative (Negative) Urine Nitrate Negative (Negative) Urine Bilirubin 2+ H (Negative) Urine Urobilinogen 1.0 (<2.0) mg/dL Add Ur Microanalysis Reviewed Leukocyte Esterase Rfl 2+ H (Negative) CHASE/UL Urine RBC 3-5 H (0-2) /hpf Urine WBC 21-50 H (0-3) /hpf Ur Squamous Epith Cells Moderate (Few) /hpf Urine Bacteria 3+ H /hpf Urine Casts >20 Urine Mucus Present /lpf POC Urine HCG, Qual Negative (Negative) Discharge Plan Discharge Clinical Impression: Diverticulitis Patient Disposition: Home, Self-Care Condition: Stable Instructions: Antibiotic Form, Diverticulitis (DC) Additional Instructions: You were seen in the emergency department for abdominal pain. Your CT shows diverticulitis. Please take the antibiotics as instructed. Follow-up with primary care physician in 1 week. If your pain becomes unbearable, your fevers get worse or intractable nausea vomiting please return to the ED for evaluation Patient Language: Czech Prescriptions: New ibuprofen 800 mg tablet 800 mg PO TID PRN (Reason: pain) 7 Days Qty: 21 0RF acetaminophen 500 mg tablet 1,000 mg PO TID PRN (Reason: victoriano) 7 Days Qty: 42 0RF amoxicillin-pot clavulanate 875-125 mg tablet 1 tablet PO Q12H Qty: 14 0RF No Action norelgestromin-ethin.estradiol [Xulane] 150-35 mcg/24 hr patch weekly 1 patch transdermal WEEKLY Qty: 3 2RF Rx Instructions: apply once weekly for 3 weeks of a 4-week cycle Follow-up/Referrals: Ron,Brian Garcia MD [Primary Care Provider] -
[2024-12-24] MEDS: SODIUM CHLORIDE 0.9% IV 1,000 ML 999 ML IV CONT (12:54)
--- OUTSIDE RECORDS SUMMARY | 2024-12-24 13:20 | XMS_ITS | CONTINUITY OF CARE DOCUMENT ---
Author Name rita salinas Address Unknown Organization [facility] Address [address] [place] [address] [address] [place] [address] Phone [phone] Care Team Providers Care Supervisor/Port Director Name Role Phone Santiago Martínez MD Unavailable SAVANNAH MALHOTRA MD Unavailable [phone] SAVANNAH MALHOTRA MD Unavailable [phone] PROBLEMS Condition Status Date Provider Notes Obesity active Santiago Martínez MD Venous insufficiency active Santiago Robles REMOTE DVT ENCOUNTERS Date Type Provider Location Encounter Diag nosis - In-person encounter Office Visit Rony Mishra MD [facility] - In-person encounter Office Visit Santiago Martínez MD [facility] Venous insufficiencyObesity VITAL SIGNS Date Observation [...] Payer name Policy type / Coverage type [facility] ID HEALTHCARE AND FAMILY SERVICES Medicaid [id number] [facility] [id number] 1 ADVANCE DIRECTIVES Name Date DISCUSSED - [...]
--- OUTSIDE RECORDS SUMMARY | 2024-12-24 13:20 | XMS_ITS | Patient Health Summary ---
Author Organization [facility] Address [address] [address] Care Team Providers Care Leveler Name Role Phone Brian Velasquez MD Primary Care Provider [phone] Note from [facility],non-owned Affiliates and Associated Physician Practices is amultiple site organization consisting of ambulatory clinics and hospital sitesin [place], [place], [place] and [place]. This disclosure is being madepursuant to the Care Everywhere program and may not contain all information available regarding this patient. Last updated 18.[facility] Allergies No known active allergies Medications * [...] INFLUENZA A+B PCR LAB (12/17/2021 9:05 AM SOFTWARE SYSTEMS ANALYST) COVID-19 PCR Detected(AA) Not detected 12/18/2021 7:14 AM SOFTWARE SYSTEMS ANALYST [facility] Influenza A PCR Not detected Not detected 12/18/2021 7:14 AM SOFTWARE SYSTEMS ANALYST [facility] Influenza B PCR Not detected Not detected 12/18/2021 7:14 AM [facility] MICROBIOLOG[facility] Microbiology SPECIMEN FROM NASOPHARYNGEAL STRUCTURE / Unknown Collection / Unknown 12/17/2021 9:05 AM SOFTWARE SYSTEMS ANALYST 12/17/2021 9:05 AM SOFTWARE SYSTEMS ANALYST Narrative [facility] - 12/18/2021 7:14 AM SOFTWARE SYSTEMS ANALYST This nucleic acid amplification assay has been [...] are available upon request. Sunni M Blue GIBSON-INSURANCE PROFESSIONAL LAB - MICROBI OLOGY ORDERABLES [facility] MICROBIOLOGY [address] [place] [address], [facility] [phone] * EMPLOYEE HEALTH COVID LAB (STL) (07/25/2021 11:40 AM CDT) COVID-19 PCR Not detected Not detected 07/26/2021 6:19 AM CDT [facility] MICROBIOLOG[facility] Microbiology SPECIMEN FROM NASOPHARYNGEAL STRUCTURE / Unknown Collection / Unknown 07/25/2021 11:40 AM CDT 07/25/2021 11:40 AM CDT Narrative [facility] MICRO[facility]OLOG[facility] - 07/26/2021 6:19 AM CDT This nucleic acid amplification assay performance was validated by [facility] Laboratory. This test has been [...] are available upon request. Sunni M Blue GIBSON-INSURANCE PROFESSIONAL LAB - MICROBI OLOGY ORDERABLES [facility] MICROBIOLOG[facility] [address] [place], [place] [address], [facility] [phone] * STREP A SCREEN - POINT OF CARE (AMB) STL (03/25/2018) Strep A Rapid POCT Negative Negative Strep A Internal Control Present Lot # [id number] Expiration Date 08/16/19 Throat ENTIRE THROAT (SURFACE REGION OF NECK) / Unknown 03/25/2018 Lala Sargent VISUAL INSPECTOR-INSURANCE PROFESSIONAL LAB - POINT OF ID RE ORDERABLES * PATHOLOGY TISSUE FOR DERMATOLOGY (11/04/2013 12:00 AM SOFTWARE SYSTEMS ANALYST) Only the most recent of2 resultswithin the time period is included. Result CASE: [id number] PATIENT: RAFAL WIGGINS PATHOLOGIC DIAGNOSIS: Right upper arm: SPONGIOTIC DERMATITIS WITH RARE EOSINOPHILS (see microscopic description and comment) CLINICAL DATA: Materials from: Cutaneous Pathology [address] [place] [address] Received from Cutaneous Pathology, at the request of Dr. Vicky Zepeda, a consult will be performed on 7 slide(s) labeled [id number]. -Subacute spongiotic dermatitis. ?? Comment: Rare scattered [...] out by Julia Fitzpatrick M.D. 11/04/2013 2:48:36PM [facility] Comment: Performed at: Dermatopathology Laboratory [facility] - Department of Dermatology [address] [place] [address], [address] [place] [address] Phone number: [phone] Toll Free: [phone] FAX: [phone] 11/04/2013 11/04/2013 Vicky Zepeda MD LAB - PATHOLOGY/CYTO LOGY ORDERABLES Performing Organization Address [facility] [address]/[facility] de Phone Number [facility] [facility]. 5th [place] [address], [facility] [phone] * CULTURE AEROBIC (10/15/2013) Culture SEE NOTE [facility] ([facility]) Comment: ??CULTURE, AEROBIC BACTERIA ?MICRO NUMBER: ?[id number] ??TEST STATUS: ? FINAL ??SPECIMEN SOURCE: ?? SKIN ??SPECIMEN QUALITY: ??ADEQUATE ??COMMENT: ? Growth of skin steve (note: Growth does not ? include S. aureus, beta-hemolytic Streptococci ? or P. aeruginosa). REPORT COMMENT: SPECIMEN TYPE->SKIN Test Performed at: [address] ??[phone] EMANI GOODWIN DO, MPH Skin (tissue) specimen (specimen) (Foot, Left) 10/15/2013 10/15/2013 10:44 PM SOFTWARE SYSTEMS ANALYST Narrative [facility] ([facility]) - 10/18/2013 9:00 AM SOFTWARE SYSTEMS ANALYST Specimen Type->Skin Vicky Zepeda MD LAB - MICROBIOLOGY O RDERABLES Performing Organization Address [facility] [address]/[facility] Co de Phone Number [facility] ([facility]) Care Teams Leveler Relationship Specialty Start Date End Date Brian Velasquez MD [address] [place] [address] [address] [place] [address] PCP - General 10/02/13
--- OUTSIDE RECORDS SUMMARY | 2024-12-24 13:20 | XMS_ITS | Continuity of Care Document ---
Author Organization [facility] Address [address] [place] [address] [address] [place] [address] Phone Care Team Providers Care Java Lead Name Role Phone Gustafson OD, Yon Unavailable Unavailable Advance Directives Directive Yes / No Effective Date File Name No Information Encounters Encounter Description Practice Location Reason(s) For Visit Diagnoses Date Provider Providers Copied on Encounter [facility], [address] [place] [address] [address], [place], [place], [id number], [place] tel:[phone] [facility] No Information Aug-2 2-200 1 Gustafson OD Yon. [address] , [address], [place], [address], [place]. tel:[phone] Family History Family Member Type Diagnosis Age [...]
--- OUTSIDE RECORDS SUMMARY | 2024-12-24 13:20 | XMS_ITS | Clinical Summary ---
Author Organization [facility] Address [address] [facility] [place] [address] Care Team Providers Care Artillery Specialist Name Role Phone Brian Velasquez MD Primary Care Provider [phone] Source Comments [facility],non-owned Affiliates and Associated Physician Practices is amultiple site organization consisting of ambulatory clinics and hospital sitesin [place], [place] and [place]. This disclosure is being madepursuant to the Care Everywhere program and may not contain all information available regarding this patient. Last updated 18.[facility] Allergies No known active allergies Medications * [...] MEDICARE MANAGED CARE PLAN GENERIC MEDICARE ADV [place] COM[place]TE MEDICARE ADV OUT OF [place] [id number] Effective for all dates [address] [facility] [address] Medicare-Man aged Care [facility] MEDICAID [id number] 2021-Pre sent [address] [place] [address] Medicaid Managed [facility] MEDICAID [id number] 2020-Pre sent ATTN CLAIMS DEPARTMENT 1 [place] [address] Medicaid Managed Care Care Teams Artillery Specialist Relationship Specialty Start Date End Date Brian Velasquez MD [address] [place] [address] [address] [place] [address] PCP - General 10/02/13
--- OUTSIDE RECORDS SUMMARY | 2024-12-24 13:20 | XMS_ITS | Referral Summary ---
Author Organization [email or web address] Address [address] [place] [address] Care Team Providers Care Design Eng Name Role Phone Brian Velasquez MD Primary Care Provider [phone] Source Comments [facility],non-owned Affiliates and Associated Physician Practices is amultiple site organization consisting of ambulatory clinics and hospital sitesin [place], [place], [place] and [place]. This disclosure is being madepursuant to the Care Everywhere program and may not contain all information available regarding this patient. Last updated 18.[facility] Allergies No known active allergies Medications * [...] MEDICARE MANAGED CARE PLAN GENERIC MEDICARE ADV [place] COMPLETE MEDICARE ADV OUT OF [place] [id number] Effective for all dates [address] [place] [address] Medicare-Man aged Care [facility] MEDICAID [id number] 2021-Pre sent [address] [place] [address] Medicaid Managed Care [facility] MEDICAID [id number] 2020-Pre sent ATTN CLAIMS DEPARTMENT 1 [place] [address] Medicaid Managed Care Care Teams Design Eng Relationship Specialty Start Date End Date Brian Velasquez MD [address] [place] [address] [address] [place] [address] PCP - General 10/02/13
[2024-12-24 15:17] VITALS: BP 134/98; PULSE 88; RESP 18; O2SAT 99
== END 2024-12-24 15:21 | disposition home or self-care (01) ==
PROVIDERS: Emergency Medicine; Emergency Provider Emergency Medicine; PCP Internal Medicine
DX: K57.32 Diverticulitis of large intestine without perforation or abscess without bleeding (principal)
CPT/HCPCS: 36415; 74177; 80053; 81001; 81025; 83690; 85025; 85055; 96360; 99284; J7030; Q9967

== ENCOUNTER 2024-12-31 16:00 | Emergency (ER) | payer OTHER, SELFPAY ==
[2024-12-31 16:08] VITALS: BP 147/97; PULSE 108; RESP 18; TEMP 36.4; O2SAT 100
--- OUTSIDE RECORDS SUMMARY | 2024-12-31 16:11 | XMS_ITS | Continuity of Care Document ---
Author Organization [facility] Address [address] [place] [address] [address] [place] [address] Phone Care Team Providers Care High School Director Name Role Phone Gustafson OD, Yon Unavailable Unavailable Advance Directives Directive Yes / No Effective Date File Name No Information Encounters Encounter Description Practice Location Reason(s) For Visit Diagnoses Date Provider Providers Copied on Encounter [facility], [id number] [place] [address] [address], [place], [place], [id number], [place] tel:[phone] SEC [facility] No Information Aug-2 2-200 1 Gustafson OD Yon. [address] , [address], [place], [address], [place]. tel:[phone] Family History Family Member Type Diagnosis Age At Onset No Information Payers Payer name Insurance type Covered alliance party ID Authoriza tion(s) No Information Social [...]
--- OUTSIDE RECORDS SUMMARY | 2024-12-31 16:11 | XMS_ITS | Patient Health Summary ---
Author Organization [facility] Address [address] [facility] [address] [place] [address] Care Team Providers Care Corn Cutter Operator Name Role Phone Brian Velasquez MD Primary Care Provider [phone] Note from [facility],non-owned Affiliates and Associated Physician Practices is amultiple site organization consisting of ambulatory clinics and hospital sitesin [place], [place], [place] and [place]. This disclosure is being madepursuant to the Care Everywhere program and may not contain all information available regarding this patient. Last updated 18.[facility] Allergies No known active allergies Medications * [...] 103 03/25/2018 4:44 PM CDT Temperature 36.6 C (97.8 F) 03/25/2018 4:44 PM CDT Respiratory Rate 16 03/25/2018 4:44 PM CDT [...] INFLUENZA A+B PCR LAB (12/17/2021 9:05 AM CARTOGRAPHIC TECHNICIAN) COVID-19 PCR Detected(AA) Not detected 12/18/2021 7:14 AM CARTOGRAPHIC TECHNICIAN [facility] Influenza A PCR Not detected Not detected 12/18/2021 7:14 AM CARTOGRAPHIC TECHNICIAN [facility] Influenza B PCR Not detected Not detected 12/18/2021 7:14 AM [facility] Microbiology SPECIMEN FROM NASOPHARYNGEAL STRUCTURE / Unknown Collection / Unknown 12/17/2021 9:05 AM CARTOGRAPHIC TECHNICIAN 12/17/2021 9:05 AM CARTOGRAPHIC TECHNICIAN Narrative [facility] - 12/18/2021 7:14 AM CARTOGRAPHIC TECHNICIAN This nucleic acid amplification assay has been authorized by the Food and Drug administration (FDA) under an Emergency Use Authorization (EUA). This test is only authorized for the [...] are available upon request. Sunni M Blue [facility] - MICROBI OLOGY ORDERABLES [facility] [address] [place] [address], [facility] [phone] * [employer]PL[employer]EE [employer] COVID LAB (STL) (07/25/2021 11:40 AM CDT) [facility] COVID-19 PCR Not detected Not detected 07/26/2021 6:19 AM CDT [facility] MICRO[facility] Microbiology SPECIMEN FROM NASOPHARYNGEAL STRUCTURE / Unknown Collection / Unknown 07/25/2021 11:40 AM CDT 07/25/2021 11:40 AM CDT Narrative [facility] - 07/26/2021 6:19 AM CDT This nucleic acid amplification assay performance was validated by [facility]. This test has been authorized by the Food and Drug administration (FDA)under an Emergency Use Authorization (EUA). This test has been validated [...] are available upon request. Sunni M Blue [facility] - MICROBI OLOGY ORDERABLES [facility] [address] [place] [address], [facility] [phone] * STREP A SCREEN - POINT OF CARE (AMB) STL (03/25/2018) Strep A Rapid POCT Negative Negative Strep A Internal Control Present Lot # [id number] Expiration Date 08/16/19 Throat ENTIRE THROAT (SURFACE REGION OF NECK) / Unknown 03/25/2018 [facility] - POINT OF OR RE ORDERABLES * PATHOLOGY TISSUE FOR DERMATOLOGY (11/04/2013 12:00 AM CARTOGRAPHIC TECHNICIAN) Only the most recent of2 resultswithin the time period is included. Result CASE: [id number] PATIENT: RAFAL WIGGINS PATHOLOGIC DIAGNOSIS: Right upper arm: SPONGIOTIC DERMATITIS WITH RARE EOSINOPHILS (see microscopic description and comment) CLINICAL DATA: Materials from: [facility] [address] [place] [address] Received from [facility], at the request of Dr. Vicky Zepeda, a consult will be performed on 7 slide(s) labeled [id number]. -Subacute spongiotic dermatitis. Comment: Rare scattered eosinophils in the infiltrate [...] perivascular lymphohistiocytic inflammatory infiltrate with rare eosinophils. The sinus red stain highlights the eosinophils. A PAS stain does not highlight any fungal elements. COMMENT: The histological differential diagnosis includes a contact dermatitis, an eczematous drug eruption, pruritic urticarial papules and plaques of and an eczematous dermatitis. Electronically signed out by Julia Fitzpatrick M.D. 11/04/2013 2:48:36PM [facility] DERMATOLOGY LAB Comment: Performed at: Dermatopathology Laboratory [facility] - Department of Dermatology [address] [place] [address], [address] [place] [address] Phone number: [phone] Toll Free: [phone] FAX: [phone] 11/04/2013 11/04/2013 Vicky Zepeda MD LAB - PATHOLOGY/CYTO LOGY ORDERABLES Performing Organization Address [facility]/State/ZIP Co de Phone Number [facility]ERMAT[facility]Y LAB [address] [facility] Lab [address] [phone] * CULTURE AEROBIC (10/15/2013) Culture SEE NOTE [facility] ([facility]) Comment: CULTURE, AEROBIC BACTERIA MICRO NUMBER: [id number] TEST STATUS: FINAL SPECIMEN SOURCE: SKIN SPECIMEN QUALITY: ADEQUATE COMMENT: Growth of skin steve (note: Growth does not include S. aureus, beta-hemolytic Streptococci or P. aeruginosa). REPORT COMMENT: SPECIMEN TYPE->SKIN Test Performed at: [facility] [address] EMANI GOODWIN DO, MPH Skin (tissue) specimen (specimen) (Foot, Left) 10/15/2013 10/15/2013 10:44 PM CARTOGRAPHIC TECHNICIAN Narrative [facility] ([facility]) - 10/18/2013 9:00 AM CARTOGRAPHIC TECHNICIAN Specimen Type->Skin iVcky Zepeda MD LAB - MICROBIOLOGY O RDERABLES [facility] ([facility]) Care Teams Corn Cutter Operator Relationship Specialty Start Date End Date Brian Velasquez MD [address] [place] [address] PCP - General 10/02/13
--- OUTSIDE RECORDS SUMMARY | 2024-12-31 16:11 | XMS_ITS | CONTINUITY OF CARE DOCUMENT ---
Author Name rita salinas Address Unknown Organization [facility] Address [address] [place] [address] [address] [place] [address] Phone [phone] Care Team Providers Care Business Services Representative Name Role Phone Santiago Martínez MD Unavailable [phone] SAVANNAH MALHOTRA MD Unavailable [phone] SAVANNAH MALHOTRA MD Unavailable [phone] PROBLEMS Condition Status Date Provider Notes Obesity active Santiago Martínez MD Venous insufficiency active Santiago Robles REMOTE DVT ENCOUNTERS Date Type Provider Location Encounter Diag nosis - In-person encounter Office Visit Rony Mishra MD [facility] - In-person encounter Office Visit Santiago Martínez MD [facility] Venous insufficiencyObesity VITAL SIGNS Date Observation [...] Policy type / Coverage type [facility] ID HEALTHCARE AND FAMILY SERVICES Medicaid 1 [id number] [facility] [id number] ADVANCE DIRECTIVES Name Date DISCUSSED - [...]
--- OUTSIDE RECORDS SUMMARY | 2024-12-31 16:11 | XMS_ITS | Referral Summary ---
Author Organization [facility] Address [address] [facility] [place] [address] Care Team Providers Care Scanner Operator Name Role Phone Brian Velasquez MD Primary Care Provider [phone] Source Comments [facility],non-owned Affiliates and Associated Physician Practices is amultiple site organization consisting of ambulatory clinics and hospital sitesin [place], [place], [place]. This disclosure is being madepursuant to the Care Everywhere program and may not contain all information available regarding this patient. Last updated 18.[facility] Allergies No known active allergies Medications * [...] MEDICARE MANAGED CARE PLAN GENERIC MEDICARE ADV [facility] COMPLETE MEDICARE ADV OUT OF [place] [id number] Effective for all dates [address] [place] [address] Medicare-Man aged Care [facility] MEDICAID [id number] 2021-Pre sent [phone] [address] [place] [address] Medicaid Managed Care [facility] MEDICAID [id number] 2020-Pre sent ATTN CLAIMS DEPARTMENT [address] [place] [address] Medicaid Managed Care Care Teams Scanner Operator Relationship Specialty Start Date End Date Brian Velasquez MD [address] [place] [address] [address] [place] [address] PCP - General 10/02/13
--- OUTSIDE RECORDS SUMMARY | 2024-12-31 16:11 | XMS_ITS | Clinical Summary ---
Author Organization [facility] Address [address] [place] [address] Care Team Providers Care Potato Picker Name Role Phone Brian Velasquez MD Primary Care Provider [phone] Source Comments [facility],non-owned Affiliates and Associated Physician Practices is amultiple site organization consisting of ambulatory clinics and hospital sitesin [place], [place], [place] and [place]. This disclosure is being madepursuant to the Care Everywhere program and may not contain all information available regarding this patient. Last updated 18.[facility] Allergies No known active allergies Medications * [...] MEDICARE MANAGED CARE PLAN GENERIC MEDICARE ADV [place] COMPLETE MEDICARE ADV OUT OF [place] [id number] Effective for all dates [phone] [address] [place] [address] Medicare-Man aged Care [facility] MEDICAID [id number] 2021-Pre sent [address] [place] [address] Medicaid Managed [facility] MEDICAID [id number] 2020-Pre sent ATTN CLAIMS DEPARTMENT 1 [place] [address] Medicaid Managed Care Care Teams Potato Picker Relationship Specialty Start Date End Date Brian Velasquez MD [address] [place] [address] [address] [place] [address] PCP - General 10/02/13
--- NOTE | 2024-12-31 17:36 | ED.ABDPAIN ---
HPI - Abdominal Pain General Chief Complaint: Abdominal Pain Stated Complaint: has diverticulitis, finished abx havin abd pain Focused HPI: this is a 29-year-old female who presents to the ED for chief complaint of abdominal pain x1 week. Patient states she was here about 1 week ago for diverticulitis and finished her full course of Augmentin. States that she felt like she was better for the 1st 5 days, however over the last couple of days pain is starting to become severe again in the left lower quadrant. Describes a twisting sensation. Denies fevers. Denies urinary symptoms, vaginal symptoms or flank pain. GENERAL: Well-appearing, well-nourished, and in no acute distress. HEAD: Normocephalic, atraumatic. CHEST: Clear to auscultation. No respiratory distress. HEART: Regular rate and rhythm. ABD: Left lower quadrant tenderness present. Soft and otherwise nontender. NEURO: Alert and oriented x3. Patient screened in triage and initial orders placed. Additional care and disposition to be based upon diagnostic testing and treatment. Source: patient Mode of arrival: ambulatory Limitations: no limitations Related Data Allergies Allergy/AdvReac Type Severity Reaction Status Date / Time No Known Allergies Allergy Verified 12/24/24 11:26 PMFSH Past Medical History Medical History Irregular periods Vaginal delivery 06/17/13 Denice htn/eczema psoriasis 12/04/14 Aaleyah htn 09/22/20 Sylas no complications Trichomonas vaginalis (TV) infection Chlamydia Encounter for IUD insertion 12/01/20 Mirena insertion HPV in female Abnormal Pap smear of cervix 08/05/2014 Ascus +HPV Encounter for IUD removal 12/13/21 Mirena removal--IUD out of place IUD migration Vascular disease (~2012) lower extremity/phlebitis w/ Hypertension affecting Surgical History Surgical History History of gynecological procedure (~12/01/20) mirena iud insertion Family History Family History Grandparent Diabetes mellitus paternal grandfather Hypertension paternal grandfather Other No pertinent family history Social History Social History Smoking status: Never smoker Second hand tobacco smoke exposure: No Alcohol intake: never Substance use: never Substance use type: does not use Do You Feel Safe in your Home?: Yes Lack of Transportation: No Lack of Food: Never True Current Housing: I Have Housing Concerned About Future Housing: No Difficulty Paying Gas/Electric Bills: No Difficulty Paying for Meds: No Currently Unemployed: No Education: High School Diploma/GED Difficulty w/ Childcare or Family Care: No Living arrangements: other Additional living arrangements comments: single Occupation/Education: occupation 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 [employer] Gender identity (if verbalized by the patient): Female Sexual Orientation (if Verbalized by the Patient): Straight or Heterosexual Spiritual care concerns: No Course Vital Signs Vital signs: Vital Signs Temperature 97.5 F L 12/31/24 16:08 Pulse Rate 108 H 12/31/24 16:08 Respiratory Rate 18 12/31/24 16:08 Blood Pressure 147/97 H 12/31/24 16:08 Pulse Oximetry 100 12/31/24 16:08 Temperature 97.5 F L 12/31/24 16:08 Pulse Rate 108 H 12/31/24 16:08 Respiratory Rate 18 12/31/24 16:08 Blood Pressure 147/97 H 12/31/24 16:08 Pulse Oximetry 100 12/31/24 16:08 MDM - Abdominal Pain MDM Narrative Medical decision making narrative: Patient eloped after being initially screened in triage Lab Data 12/31/24 22:44 12/31/24 22:44 Labs: Lab Results 12/31/24 12/31/24 Range/Units 22:44 22:45 WBC 13.3 H (4.5-10.0) K/mm3 RBC 4.03 L (4.2-5.4) M/mm3 Hgb 11.9 L (12.0-15.0) g/dL Hct 37.0 (37.0-47.0) % MCV 91.8 (80-100) fl MCH 29.5 (26-34) pg MCHC 32.2 (32-36) g/dl RDW 13.1 (11.5-14.5) % Plt Count 362 D (150-375) k/mm3 MPV 10.6 H (7.4-10.4) fl Immature Gran % (Auto) 0.5 (0-0.5) % Neut % (Auto) 70.5 (45.5-73.1) % Lymph % (Auto) 20.9 (18.3-44.2) % [place] % (Auto) 6.1 (2.6-8.5) % Eos % (Auto) 1.7 (0-4.4) % Baso % (Auto) 0.3 (0.2-1.2) % Lymph # (Auto) 2.78 (0.9-3.2) K/mm3 [place] # (Auto) 0.8 H (0.1-0.6) K/mm3 Eos # (Auto) 0.2 (0-0.3) K/mm3 Baso # (Auto) 0.0 (0.0-0.1) K/mm3 Abs Immat Gran (auto) 0.06 H (0.00-0.031) K/mm3 Absolute Neuts (auto) 9.4 H (1.3-6.7) K/mm3 Absolute Nucleated RBC 0.000 (0.0-0.012) K/mm3 Nucleated RBC % 0.0 (0.0-0.2) % Sodium 136 L (137-145) mmol/L Potassium 4.0 (3.4-5.0) mmol/L Chloride 102 (98-107) mmol/L Carbon Dioxide 23 (22-30) mmol/L Anion Gap 11 (4-12) mmol/L BUN 7 (7-17) mg/dL Creatinine 0.63 L (0.7-1.0) mg/dL Estim Creat Clear Calc 140 ml/min Estimated GFR > 60 (59 - ) Glucose 96 (65-110) mg/dL Calcium 9.0 (8.4-10.2) mg/dL Total Bilirubin 0.7 (0.2-1.3) mg/dL AST 29 (14-36) U/L ALT 33 (6-35) U/L Alkaline Phosphatase 75 (38-126) U/L Total Protein 8.0 (6.3-8.2) g/dL Albumin 4.0 (3.5-5.1) g/dL Lipase 37 (23-300) U/L Urine Color Dark yellow (Yellow) Urine Appearance Clear (Clear) Urine pH 5.0 (5.0-9.0) Ur Specific [place] 1.027 (1.001-1.035) Urine Protein Trace (Negative) mg/dL Urine Glucose (UA) Negative (Negative) mg/dL Urine Ketones Trace H (Negative) mg/dL Ur Blood (Man) Negative (Negative) Urine Nitrate Negative (Negative) Urine Bilirubin Negative (Negative) Urine Urobilinogen 0.2 (<2.0) mg/dL Leukocyte Esterase Rfl Negative (Negative) CHASE/UL Urine RBC 0-2 (0-2) /hpf Urine WBC 0-5 (0-3) /hpf Ur Squamous Epith Cells None seen (Few) /hpf Urine Bacteria None seen /hpf Urine Casts 0-2 Discharge Plan Discharge Clinical Impression: Abdominal pain Patient Disposition: Elopement After Seen by Prov Condition: Stable Instructions: Antibiotic Form Patient Language: Norwegian Prescriptions: No Action ibuprofen 800 mg tablet 800 mg PO TID PRN (Reason: pain) 7 Days Qty: 21 0RF acetaminophen 500 mg tablet 1,000 mg PO TID PRN (Reason: victoriano) 7 Days Qty: 42 0RF amoxicillin-pot clavulanate 875-125 mg tablet 1 tablet PO Q12H Qty: 14 0RF norelgestromin-ethin.estradiol [Xulane] 150-35 mcg/24 hr patch weekly 1 patch transdermal WEEKLY Qty: 3 2RF Rx Instructions: apply once weekly for 3 weeks of a 4-week cycle Follow-up/Referrals: Ron,Brian Garcia MD [Primary Care Provider] -
[2024-12-31 23:03] LABS: Basophils Percent Auto 0.3 % (0.2-1.2); Eosinophils Absolute Auto 0.2 K/mm3 (0-0.3); Eosinophils Percent Auto 1.7 % (0-4.4); Hemoglobin 11.9 g/dL (12.0-15.0); Immature Granulocyte Absolute 0.06 K/mm3 (0.00-0.031); Immature Granulocyte Percent A 0.5 % (0-0.5); Lymphocytes Absolute Auto 2.78 K/mm3 (0.9-3.2); Lymphocytes Percent Auto 20.9 % (18.3-44.2); Mean Corpuscular HGB Conc 32.2 g/dl (32-36); Mean Corpuscular Hemoglobin 29.5 pg (26-34); Mean Corpuscular Volume 91.8 fl (80-100); Mean Platelet Volume 10.6 fl (7.4-10.4); Monocytes Absolute Auto 0.8 K/mm3 (0.1-0.6); Monocytes Percent Auto 6.1 % (2.6-8.5); Neutrophils Absolute Auto 9.4 K/mm3 (1.3-6.7); Neutrophils Percent Auto 70.5 % (45.5-73.1); Platelet Count Result 362 k/mm3 (150-375); Red Blood Count 4.03 M/mm3 (4.2-5.4); Red Cell Distribution Width 13.1 % (11.5-14.5); White Blood Count 13.3 K/mm3 (4.5-10.0)
[2024-12-31 23:55] LABS: Alanine Aminotransferase 33 U/L (6-35); Alkaline Phosphatase 75 U/L (38-126); Anion Gap 11 mmol/L (4-12); Aspartate Amino Transferase 29 U/L (14-36); Bilirubin,Total 0.7 mg/dL (0.2-1.3); Blood Urea Nitrogen 7 mg/dL (7-17); Carbon Dioxide 23 mmol/L (22-30); Chloride 102 mmol/L (98-107); Estimated CRCL calculation 140 ml/min; Estimated Glomerular Filt Rate > 60; Glucose 96 mg/dL (65-110); Lipase 37 U/L (23-300); Sodium 136 mmol/L (137-145)
[2025-01-01 01:26] LABS: Add Urine Microscopic? YES; Appearance Urine Clear (Clear); Bacteria Urine None Seen /hpf; Bilirubin Urine Negative (Negative); Blood Urine Negative (Negative); Color Urine Dark Yellow (Yellow); Glucose Urine UA Negative (Negative); Ketones Urine Trace mg/dL (Negative); Leukocyte Esterase Ur Negative LEU/UL (Negative); Nitrate Urine Negative (Negative); Non Pathogenic Casts 0-2; Protein Urine Trace mg/dL (Negative); RBC Urine 0-2 /hpf (0-2); Specific Grav Ur 1.027 (1.001-1.035); Squamous Epithelial Cell Urine None Seen /hpf (Few); Urobilinogen Urine 0.2 mg/dL (<2.0); WBC Urine 0-5 /hpf (0-3)
--- NOTE | 2025-01-01 01:30 | PC.NURSE ---
Patient approached triage desk stating that she was going to leave due to wait times. Pt instructed to be seen at the nearest ED for warranting symptoms.
--- OUTSIDE RECORDS SUMMARY | 2025-01-01 04:52 | XMS_ITS | Clinical Summary ---
Author Organization [facility] Address [address] [place] [address] Care Team Providers Care Home Planning Consultant Salesperson Name Role Phone Brian Velasquez MD Primary Care Provider [phone] Source Comments [facility] [employer],non-owned Affiliates and Associated Physician Practices is amultiple site organization consisting of ambulatory clinics and hospital sitesin [place], [place], [place] and [place]. This disclosure is being madepursuant to the Care Everywhere program and may not contain all information available regarding this patient. Last updated 18.[facility] Allergies No known active allergies Medications * [...] MEDICARE MANAGED CARE PLAN GENERIC MEDICARE ADV [place] COMPLETE MEDICARE ADV OUT OF [place] [id number] Effective for all dates [phone] [facility] [address] Medicare-Man aged Care [facility] MEDICAID [id number] 2021-Pre sent [address] [place] [address] Medicaid Managed [facility] MEDICAID [id number] 2020-Pre sent [phone] ATTN CLAIMS DEPARTMENT [address] [place] [address] Medicaid Managed Care Care Teams Home Planning Consultant Salesperson Relationship Specialty Start Date End Date Brian Velasquez MD [address] [place] [address] [address] [place] [address] PCP - General 10/02/13
--- OUTSIDE RECORDS SUMMARY | 2025-01-01 04:52 | XMS_ITS | Continuity of Care Document ---
Author Organization [facility] Address [address] [place] [address] [address] [place] [address] Phone Care Team Providers Care Oil Program Compliance Specialist Name Role Phone Gustafson OD, Yon Unavailable Unavailable Advance Directives Directive Yes / No Effective Date File Name No Information Encounters Encounter Description Practice Location Reason(s) For Visit Diagnoses Date Provider Providers Copied on Encounter [facility], [id number] [place] [address] [address], [place], [place], [id number], [place] tel:[phone] [facility] [facility] No Information Aug-2 2-200 1 Gustafson OD Yon. [address] , [address], [place], [address], [place]. tel:[phone] Family History Family Member Type Diagnosis Age [...]
--- OUTSIDE RECORDS SUMMARY | 2025-01-01 04:52 | XMS_ITS | Referral Summary ---
Author Organization [facility] Address [address] [place] [address] Care Team Providers Care Department Director Name Role Phone Brian Velasquez MD Primary Care Provider [phone] Source Comments [facility],non-owned Affiliates and Associated Physician Practices is amultiple site organization consisting of ambulatory clinics and hospital sitesin [place], [place] and [place]. This disclosure is being madepursuant to the Care Everywhere program and may not contain all information available regarding this patient. Last updated 18.[facility] Allergies No known active allergies Medications * [...] MEDICARE MANAGED CARE PLAN GENERIC MEDICARE ADV [facility] MEDIC[facility] ADV OUT OF [place] [id number] Effective for all dates [address] [place] [address] Medicare-Man aged Care [facility] MEDICAID [id number] 2021-Pre sent [address] [place] [address] Medicaid Managed Care [facility] MEDICAID [id number] 2020-Pre sent ATTN CLAIMS DEPARTMENT [address] [place] [address] Medicaid Managed Care Care Teams Department Director Relationship Specialty Start Date End Date Brian Vleasquez MD [address] [place] [address] [address] [place] [address] PCP - General 10/02/13
--- OUTSIDE RECORDS SUMMARY | 2025-01-01 04:52 | XMS_ITS | CONTINUITY OF CARE DOCUMENT ---
Author Name rita salinas Address Unknown Organization [facility] Address [address] [place] [address] [address] [place] [address] Phone [phone] Care Team Providers Care Junior Marketing Associate Name Role Phone Snatiago Martínez MD Unavailable [phone] SAVANNAH MALHOTRA MD Unavailable [phone] SAVANNAH MALHOTRA MD Unavailable [phone] PROBLEMS Condition Status Date Provider Notes Venous insufficiency active Santiago Robles REMOTE DVT Obesity active Santiago Martínez MD ENCOUNTERS Date Type Provider Location Encounter Diag nosis - In-person encounter Office Visit Rony Mishra MD [place] [facility] - In-person encounter Office Visit Santiago Martínez MD [place] [facility] Venous insufficiencyObesity VITAL SIGNS Date Observation [...] Policy type / Coverage type [facility] ID HEALTHCARE AND FAMILY SERVICES Medicaid 1 [id number] [facility] [id number] 1 ADVANCE DIRECTIVES Name Date DISCUSSED - [...]
--- OUTSIDE RECORDS SUMMARY | 2025-01-01 04:52 | XMS_ITS | Patient Health Summary ---
Author Organization [facility] [employer] Address [address] [place] [address] Care Team Providers Care Spindle Frame Carver Name Role Phone Brian Velasquez MD Primary Care Provider [phone] Note from [facility],non-owned Affiliates and Associated Physician Practices is amultiple site organization consisting of ambulatory clinics and hospital sitesin [place], [place], [place] and [place]. This disclosure is being madepursuant to the Care Everywhere program and may not contain all information available regarding this patient. Last updated 18.[facility] [employer] Allergies No known active allergies Medications * [...] INFLUENZA A+B PCR LAB (12/17/2021 9:05 AM IRON ERECTOR) COVID-19 PCR Detected(AA) Not detected 12/18/2021 7:14 AM IRON ERECTOR [facility] MICROBIOLOGY Influenza A PCR Not detected Not detected 12/18/2021 7:14 AM IRON ERECTOR [facility] MICROBIOLOG[facility] Influenza B PCR Not detected Not detected 12/18/2021 7:14 AM [facility] MICROBIOLOG[facility] Microbiology SPECIMEN FROM NASOPHARYNGEAL STRUCTURE / Unknown Collection / Unknown 12/17/2021 9:05 AM IRON ERECTOR 12/17/2021 9:05 AM IRON ERECTOR Narrative [facility] MICROBIOLOGY - 12/18/2021 7:14 AM IRON ERECTOR This nucleic acid amplification assay has been [...] are available upon request. Sunni M Blue [facility] - MICROBI OLOGY ORDERABLES [facility] MICROBIOLOGY [address] [place] [address], [facility] [phone] * EMPLOYEE HEALTH COVID LAB (STL) (07/25/2021 11:40 AM CDT) [facility] COVID-19 PCR Not detected Not detected 07/26/2021 6:19 AM CDT [facility] MICROBIOLOGY Microbiology SPECIMEN FROM NASOPHARYNGEAL STRUCTURE / Unknown Collection / Unknown 07/25/2021 11:40 AM CDT 07/25/2021 11:40 AM CDT Narrative [facility] MICROBIOLOGY - 07/26/2021 6:19 AM CDT This nucleic acid amplification assay performance was validated by [facility] Microbiology Laboratory. This test has been [...] are available upon request. Sunni M Blue [facility] - MICROBI OLOGY ORDERABLES [facility] MICROBIOLOGY [address] [place] [address], [facility] [phone] * STREP A SCREEN - POINT OF CARE (AMB) STL (03/25/2018) Strep A Rapid POCT Negative Negative Strep A Internal Control Present Lot # [id number] Expiration Date 08/16/19 Throat ENTIRE THROAT (SURFACE REGION OF NECK) / Unknown 03/25/2018 Lala Sargent DIRECTOR OF FIELD SERVICE-[facility] - POINT OF [place] RE ORDERABLES * PATHOLOGY TISSUE FOR DERMATOLOGY (11/04/2013 12:00 AM IRON ERECTOR) Only the most recent of2 resultswithin the time period is included. Result CASE: [id number] PATIENT: RAFAL WIGGINS PATHOLOGIC DIAGNOSIS: Right upper arm: SPONGIOTIC DERMATITIS WITH RARE EOSINOPHILS (see microscopic description and comment) CLINICAL DATA: Materials from: [facility] [address] [place] [address] Received from [facility], at the request of Dr. Vicky Zepeda, a consult will be performed on 7 slide(s) labeled [id number]. -Subacute spongiotic dermatitis. Comment: Rare scattered eosinophils [...] out by Julia Fitzpatrick M.D. 11/04/2013 2:48:36PM [facility] Comment: Performed at: Dermatopathology Laboratory [facility] - Department of Dermatology [address] [place] [address], [address] [place] [address] Phone number: [phone] Toll Free: [phone] FAX: [phone] 11/04/2013 11/04/2013 Vicky Zepeda MD LAB - PATHOLOGY/CYTO LOGY ORDERABLES Performing Organization Address [facility]/State/ZIP Co de Phone Number [facility] [address] [facility] Lab [address] [phone] * CULTURE AEROBIC (10/15/2013) Culture SEE NOTE [facility]) Comment: CULTURE, AEROBIC BACTERIA MICRO NUMBER: [id number] TEST STATUS: FINAL SPECIMEN SOURCE: SKIN SPECIMEN QUALITY: ADEQUATE COMMENT: Growth of skin steve (note: Growth does not include S. aureus, beta-hemolytic Streptococci or P. aeruginosa). REPORT COMMENT: SPECIMEN TYPE->SKIN Test Performed at: [facility] [address] EMANI GOODWIN DO, MPH Skin (tissue) specimen (specimen) (Foot, Left) 10/15/2013 10/15/2013 10:44 PM IRON ERECTOR Narrative [facility] ([facility]) - 10/18/2013 9:00 AM IRON ERECTOR Specimen Type->Skin Vicky Zepeda MD LAB - MICROBIOLOGY O RDERABLES [facility] ([facility]) Care Teams Spindle Frame Carver Relationship Specialty Start Date End Date Brian Velasquez MD [address] [place] [address] PCP - General 10/02/13
== END 2025-01-01 01:30 | disposition left against medical advice (07) ==
LOC: ANHED 01-01 04:51
PROVIDERS: Emergency Provider Physician Assistant; PCP Internal Medicine
DX: R10.9 Unspecified abdominal pain (principal)
CPT/HCPCS: 36415; 80053; 81001; 81025; 83690; 85025; 99283

== ENCOUNTER 2025-01-31 11:36 | Outpatient (CLI) | payer OTHER, SELFPAY ==
--- OUTSIDE RECORDS SUMMARY | 2025-01-31 11:39 | XMS_ITS | Referral Summary ---
Author Organization [facility] Address [address] [facility] [place] [address] Care Team Providers Care Hvac Manager Name Role Phone Brian Velasquez MD Primary Care Provider [phone] Source Comments [facility],non-owned Affiliates and Associated Physician Practices is amultiple site organization consisting of ambulatory clinics and hospital sitesin [place], [place], [place] and [place]. This disclosure is being madepursuant to the Care Everywhere program and may not contain all information available regarding this patient. Last updated 18.[facility] Allergies No known active allergies Medications * [...] MEDICARE MANAGED CARE PLAN GENERIC MEDICARE [facility]V [facility] ADV OUT OF [place] [id number] Effective for all dates [address] [place] [address] Medicare-Man aged Care [facility] MEDICAID [id number] 2021-Pre sent [address] [place] [address] Medicaid Managed Care [facility] MEDICAID [id number] 2020-Pre sent ATTN CLAIMS DEPARTMENT [address] [place] [address] Medicaid Managed Care Care Teams Hvac Manager Relationship Specialty Start Date End Date Brian Velasquez MD [address] [place] [address] [address] [place] [address] PCP - General 10/02/13
--- OUTSIDE RECORDS SUMMARY | 2025-01-31 11:39 | XMS_ITS | CONTINUITY OF CARE DOCUMENT ---
Author Name rita salinas Address Unknown Organization [facility] Address [address] [place] [address] [address] [place] [address] Phone [phone] Care Team Providers Care Nurse Administrator Name Role Phone Santiago Martínez MD Unavailable [phone] SAVANNAH MALHOTRA MD Unavailable SAVANNAH MALHOTRA MD Unavailable [phone] PROBLEMS Condition Status Date Provider Notes Venous insufficiency active Santiago Robles REMOTE DVT Obesity active Santiago Martínez MD ENCOUNTERS Date Type Provider Location Encounter Diag nosis - In-person encounter Office Visit Rony Mishra MD [place] [facility] - In-person encounter Office Visit Santiago Martínez MD [place] [facility] Venous insufficiencyObesity VITAL SIGNS Date Observation [...] Payer name Policy type / Coverage type [facility] ID HEALTHCARE AND FAMILY SERVICES Medicaid 1 [id number] [facility] [id number] 1 ADVANCE DIRECTIVES Name Date DISCUSSED - [...]
--- OUTSIDE RECORDS SUMMARY | 2025-01-31 11:39 | XMS_ITS | Patient Health Summary ---
Author Organization [facility] Address [address] [place] [address] Care Team Providers Care Television Maintenance Worker Name Role Phone Brian Velasquez MD Primary Care Provider [phone] Note from [facility],non-owned Affiliates and Associated Physician Practices is amultiple site organization consisting of ambulatory clinics and hospital sitesin [place], [place], [place] and [place]. This disclosure is being madepursuant to the Care Everywhere program and may not contain all information available regarding this patient. Last updated 18.[facility] Allergies No known active allergies Medications * [...] INFLUENZA A+B PCR LAB (12/17/2021 9:05 AM BROKE BEATER) COVID-19 PCR Detected(AA) Not detected 12/18/2021 7:14 AM BROKE BEATER [facility] MICRO[facility] Influenza A PCR Not detected Not detected 12/18/2021 7:14 AM BROKE BEATER [facility] MICRO[facility] Influenza B PCR Not detected Not detected 12/18/2021 7:14 AM [facility] MICROBIOLOG[facility] Microbiology SPECIMEN FROM NASOPHARYNGEAL STRUCTURE / Unknown Collection / Unknown 12/17/2021 9:05 AM BROKE BEATER 12/17/2021 9:05 AM BROKE BEATER Narrative [facility] MICROBIOLOG[facility] - 12/18/2021 7:14 AM BROKE BEATER This nucleic acid amplification assay has been [...] are available upon request. Sunni M Blue [employer]ILING[employer] SALES REPRESENTATIVE LAB - MICROBI OLOGY ORDERABLES [facility] MICROBIOLOGY [address] [place] [address], [facility] [phone] * EMPLOYEE HEALTH COVID LAB (STL) (07/25/2021 11:40 AM CDT) [facility] COVID-19 PCR Not detected Not detected 07/26/2021 6:19 AM CDT [facility] MICROBIOLOGY Microbiology SPECIMEN FROM NASOPHARYNGEAL STRUCTURE / Unknown Collection / Unknown 07/25/2021 11:40 AM CDT 07/25/2021 11:40 AM CDT Narrative [facility] MICROBIOLOGY - 07/26/2021 6:19 AM CDT This nucleic acid amplification assay performance was validated by [facility] Microbiology Laboratory. This test has [...] are available upon request. Sunni M Blue GIBSON-BILINGUAL SALES REPRESENTATIVE LAB - MICROBI OLOGY ORDERABLES [facility] MICROBIOLOGY [address] [place] [address], [facility] [phone] * STREP A SCREEN - POINT OF CARE (AMB) STL (03/25/2018) Strep A Rapid POCT Negative Negative Strep A Internal Control Present Lot # [id number] Expiration Date 08/16/19 Throat ENTIRE THROAT (SURFACE REGION OF NECK) / Unknown 03/25/2018 Lala Sargent EMBLEM CUTTER-BILINGUAL SALES REPRESENTATIVE LAB - POINT OF [place] RE ORDERABLES * PATHOLOGY TISSUE FOR DERMATOLOGY (11/04/2013 12:00 AM BROKE BEATER) Only the most recent of2 resultswithin the time period is included. Result CASE: [id number] PATIENT: RAFAL WIGGINS PATHOLOGIC DIAGNOSIS: Right upper arm: SPONGIOTIC DERMATITIS WITH RARE EOSINOPHILS (see microscopic description and comment) CLINICAL DATA: Materials from: [facility] [address] [place] [address] Received from [facility], at the request of Dr. Vicky Zepeda, a consult will be performed on 7 slide(s) labeled [id number]. -Subacute spongiotic dermatitis. Comment: Rare scattered eosinophils [...] out by Julia Fitzpatrick M.D. 11/04/2013 2:48:36PM [facility] Comment: Performed at: Dermatopathology Laboratory [facility] - Department of Dermatology [address] [place] [address], [address] [place] [address] Phone number: [phone] Toll Free: [phone] FAX: [phone] 11/04/2013 11/04/2013 Vicky Zepeda MD LAB - PATHOLOGY/CYTO LOGY ORDERABLES Performing Organization Address [facility]/State/ZIP Co de Phone Number [facility] [address] [facility] Lab [address] [phone] * CULTURE AEROBIC (10/15/2013) Culture SEE NOTE [facility] ([facility]) Comment: CULTURE, AEROBIC BACTERIA MICRO NUMBER: [id number] TEST STATUS: FINAL SPECIMEN SOURCE: SKIN SPECIMEN QUALITY: ADEQUATE COMMENT: Growth of skin steve (note: Growth does not include S. aureus, beta-hemolytic Streptococci or P. aeruginosa). REPORT COMMENT: SPECIMEN TYPE->SKIN Test Performed at: [facility] [address] EMANI GOODWIN DO, MPH Skin (tissue) specimen (specimen) (Foot, Left) 10/15/2013 10/15/2013 10:44 PM BROKE BEATER Narrative [facility] ([facility]) - 10/18/2013 9:00 AM BROKE BEATER Specimen Type->Skin Vicky Zepeda MD LAB - MICROBIOLOGY O RDERABLES [facility] ([facility]) Care Teams Television Maintenance Worker Relationship Specialty Start Date End Date Brian Velasquez MD [address] [place] [address] PCP - General 10/02/13
--- OUTSIDE RECORDS SUMMARY | 2025-01-31 11:39 | XMS_ITS | Continuity of Care Document ---
Author Organization [facility] Address [address] [place] [address] Phone Care Team Providers Care Recruiter Name Role Phone Gustafson OD, Yon Unavailable Unavailable Advance Directives Directive Yes / No Effective Date File Name No Information Encounters Encounter Description Practice Location Reason(s) For Visit Diagnoses Date Provider Providers Copied on Encounter [facility], [address] [place] [address] [address], [place], [place], [id number], [place] tel:[phone] SEC [facility] No Information Aug-2 2-200 1 Gustafson OD Yon. [address] , [address], [place], [address], [place]. tel:[phone] Family History Family Member Type Diagnosis Age [...]
--- OUTSIDE RECORDS SUMMARY | 2025-01-31 11:39 | XMS_ITS | Clinical Summary ---
Author Organization [facility] Address [address] [facility] [place] [address] Care Team Providers Care Rubber Tile Floor Layer Name Role Phone Brian Velasquez MD Primary Care Provider [phone] Source Comments [facility],non-owned Affiliates and Associated Physician Practices is amultiple site organization consisting of ambulatory clinics and hospital sitesin [place], [place], [place] and [place]. This disclosure is being madepursuant to the Care Everywhere program and may not contain all information available regarding this patient. Last updated 18.[facility] Allergies No known active allergies Medications * [...] MEDICARE MANAGED CARE PLAN GENERIC MEDICARE ADV [facility] COMPLETE [place]IC[place] AD[place] OUT OF [place] [id number] Effective for all dates [phone] [address] [facility] [address] Medicare-Man aged Care [facility] MEDICAID [id number] 2021-Pre sent [phone] [address] [place] [address] Medicaid Managed [facility] MEDICAID [id number] 2020-Pre sent [phone] ATTN CLAIMS DEPARTMENT 1 [place] [address] Medicaid Managed Care Care Teams Rubber Tile Floor Layer Relationship Specialty Start Date End Date Brian Velasquez MD [address] [place] [address] [address] [place] [address] PCP - General 10/02/13
== END 2025-01-31 11:37 | disposition home or self-care (01) ==
PROVIDERS: PCP Internal Medicine; Visit Provider Internal Medicine
DX: M25.571 Pain in right ankle and joints of right foot (principal)
CPT/HCPCS: 73610